=== PATIENT | female | born 1965 | race Caucasian/White ===

== ENCOUNTER 2025-02-23 14:00 | Outpatient (AMB) | payer BC, SELFPAY ==
--- OUTSIDE RECORDS SUMMARY | 2025-02-23 17:10 | XMS_ITS | Clinical Summary ---
Author Organization [facility] [employer] Address [address] [place] [address] Care Team Providers Care Chemist Proteins Name Role Phone No, Pcp CHIEF COMPLIANCE OFFICER Primary Care Provider Unavailabl e Allergies Active Allergy Reactions Criticality Noted Date Comments Cefprozil Rash Low 09/06/2013 Medications anastrozole (ARIMIDEX) 1 mg tablet TAKE 1 TABLET BY MOUTH EVERY DAY 02/07/2023 Active anastrozole (ARIMIDEX) 1 mg tablet TAKE 1 TABLET BY MOUTH EVERY DAY Active CALCIUM CITRATE-VITAMIN D3 ORAL 1200mg Active Social History Tobacco Use Types Packs/Day Years Used Date Smoking Tobacco: Never Smokeless Tobacco: Never Tobacco Cessation:Counseling Given: Not Answered Comments Unknown Sex and Gender Information Value Date Recorded Sex Assigned at Not on file Legal Sex Female 4:40 AM EST Gender Identity Not on file Sexual Orientation Not on file Last Filed Vital Signs Vital Sign Reading Time Taken Comments Blood Pressure 118/72 02/20/2023 8:49 AM EDT Pulse 74 02/20/2023 8:49 AM EDT Temperature 36.6 C (97.8 F) 02/20/2023 8:49 AM EDT Respiratory Rate 16 02/20/2023 8:49 AM EDT Oxygen Saturation 100% 02/20/2023 8:49 AM EDT Inhaled Oxygen Concentration - - Weight - - Height - - Body Mass Index - - Plan of Treatment Health Maintenance Due Date Last Done Comments Colorectal Cancer: COLONOSCO PY Screening every 10 yrs (or Modifier) 1963 Depression: Screening Annual ly using PHQ-2/9 in Adults 18 yrs or above (or HM Modifier)([facility]) 10/17/1981 Hepatitis C Virus Infection in Adolescents and Adults: Screening (or Modifier) ([facility]) 10/17/1981 SDOH Screening Reminder: Zaynab salinas for all adults ([facility]) 10/17/1981 Tobacco Smoking Cessation: i n Adults excluding Women: Behavioral and Pharmacotherapy Interventions ([facility]) 10/17/1981 Cervical Cancer Screenin 1-65 yrs of age (or Modifier) 10/17/1984 Cervical Cancer Screening: P ap every 3 yrs pts age 21-65 10/17/1984 Cervical Cancer: Pap Screeni ng with Modifier timing ([facility]) 10/17/1984 Cervical Cancer: hrHPV alone or with cotesting Pap for Pts 30-65yrs screening every 5yrs ([facility]) 10/17/1984 Colorectal Cancer Screening 45 -75 Yrs (or HM Modifier) 10/17/2008 Colorectal Cancer: FLEXIBLE SIGMOIDOSCOPY Screening every 5 yrs 10/17/2008 Colorectal Cancer: Fecal Imm unochemical Test (FIT) Annually [facility] 10/17/2008 Colorectal Cancer: High-sens itivity gFOBT Screening Annually [facility] 10/17/2008 Colorectal Cancer: Stool Col oguard Screening every 3 yrs 10/17/2008 Colorectal Cancer:CT Colonog valeria Screening every 5 yrs 10/17/2008 Pneumococcal Vaccination Scr eening: Patients 50+ yrs of age ([facility]) (1 of 1 - PCV) 10/17/2013 Zoster/Shingles Vaccine Seri es Screening: Adults aged 18+ yrs (or HM Modifiers)([facility]) (2 of 2) 05/01/2021 03/06/2021 Breast Cancer: Screening Zaynab brad age 50-74 yrs (or HM Modifier)([facility]) 08/13/2022 08/13/2021 Flu Vaccination: Yearly for ages 18mos through 64 years (or Modifier)([facility]) 01/14/2025 04/12/2021, 8 DTaP/Tdap/Td Vaccines ([facility]) (2 - Td or Tdap) 04/24/2027 04/24/2017 RSV Vaccines (1 - 1-dose 75+ series) 10/17/2038 Medical Devices Not on file Insurance [employer] [place] MEDICARE [facility] Care Teams Chemist Proteins Relationship Specialty Start Date End Date No, Pcp, CHIEF COMPLIANCE OFFICER N/A Do not use PCP - General Family Medicine 05/06/20
== END 2025-02-23 14:05 | disposition home or self-care (01) ==
LOC: HO.HMGAL 14:00
PROVIDERS: PCP Internal Medicine; Visit Provider Registered Nurse Emergency
DX: J30.89 Other allergic rhinitis (principal)
CPT/HCPCS: 95117; 95165

== ENCOUNTER 2025-04-06 15:50 | Outpatient (AMB) | payer BC, SELFPAY ==
--- OUTSIDE RECORDS SUMMARY | 2025-04-06 21:55 | XMS_ITS | Clinical Summary ---
Author Organization [facility] [employer] Address [address] [place] [address] Care Team Providers Care Family Law Mediator Name Role Phone No, Pcp SEAT COVERS TRIMMER Primary Care Provider Unavailabl e Allergies Active [...] Adults 18 yrs or above (or HM Modifier)([facility]) 10/17/1981 Hepatitis C Virus Infection in Adolescents and Adults: Screening (or Modifier) ([facility]) 10/17/1981 SDOH Screening Reminder: Zaynab brad for all adults ([facility]) 10/17/1981 Tobacco Smoking Cessation: i n Adults excluding Women: Behavioral and Pharmacotherapy Interventions ([facility]) 10/17/1981 Cervical Cancer Screenin 1-65 yrs of age (or Modifier) 10/17/1984 Cervical Cancer Screening: P ap every 3 yrs pts age 21-65 10/17/1984 Cervical Cancer: Pap Screeni ng with Modifier timing ([facility]) 10/17/1984 Cervical Cancer: hrHPV alone or with cotesting Pap for Pts 30-65yrs screening every 5yrs ([facility]) 10/17/1984 Colorectal Cancer Screening 45 -75 Yrs (or HM Modifier) 10/17/2008 Colorectal Cancer: FLEXIBLE SIGMOIDOSCOPY Screening every 5 yrs 10/17/2008 Colorectal Cancer: Fecal Immunochemical Test (FIT) Annually [facility] 10/17/2008 Colorectal Cancer: High-sens itivity gFOBT Screening Annually [facility] 10/17/2008 Colorectal Cancer: Stool Col oguard Screening every 3 yrs 10/17/2008 Colorectal Cancer:CT Colonog valeria Screening every 5 yrs 10/17/2008 Pneumococcal Vaccination Scr eening: Patients 50+ yrs of age ([facility]) (1 of 1 - PCV) 10/17/2013 Zoster/Shingles Vaccine Seri es Screening: Adults aged 18+ yrs (or HM Modifiers)([facility]) (2 of 2) 05/01/2021 03/06/2021 Breast Cancer: Screening Zaynab brad age 50-74 yrs (or HM Modifier)([facility]) 08/13/2022 08/13/2021 Flu Vaccination: Yearly for ages 18mos through 64 years (or Modifier)([facility]) 01/14/2025 04/12/2021, 8 COVID-19 Vaccine Screening: Initial Series and Booster Status ([facility]) ( - season) 2025 06/13/2021, 07/19/2020, 06/28/2020 DTaP/Tdap/Td Vaccines ([facility]) (2 - Td or Tdap) 04/24/2027 04/24/2017 RSV Vaccines (1 - 1-dose 75+ series) 10/17/2038 Medical Devices Not on file Insurance [employer] [place] MEDIC[place] [facility] Care Teams Family Law Mediator Relationship Specialty Start Date End Date No, Pcp, SEAT COVERS TRIMMER N/A Do not use PCP - General Family Medicine 05/06/20
--- OUTSIDE RECORDS SUMMARY | 2025-04-06 21:56 | XMS_ITS | Data Portability ---
Author Organization [facility], Main Office Address [address] [facility] [address] [place] [address] Care Team Providers Care Child Support Officer Name Role Phone ENRIQUE HARRISRICK Primary Care Provider [facility] Mobile Phone Salesperson NICHOL SOLO Stencil Printer WILFREDO GEIGER General Surgeon ALLEN BURT Referring Provider [phone] Assessment Encounter Date Assessment Date Assessment LastModified by Organization Details LastModified Time 02/26/2023 02/26/2023 This service was provided using telemedicine. Patient consented to video & audio visit Patient was located in the [facility]. Provider was located in the office. No other persons participated in the telemedicine visit except for the patient unless otherwise indicated here. Total time of visit was 15 minutes. [email or web address] Not available 02/26/2023 13:29:49 03/17/2023 03/17/2023 Smita presents for right arm pain x1 week-a wooden fence fell on her right arm while installing it last Friday 03/09. Pain with certain movements of the wrist- flexion. Application of ice and use of a wrist brace alleviates symptoms. Denies of any breakage in skin or loss of sensation to arm/hand. States pain is about a 3-4/10. Does not notice any changes to her arm/hand strength. Physical exam revealed mild swelling to the right forearm. Not warm to touch. Muscle strength/tone is intact bilaterally to the wrist and hand. No bony deformities or tenderness to palpation of the area. Discussed with pt to continue resting, ice packs, and wearing the wrist brace. Denies of any alarm symptoms [email or web address] Not available 03/17/2023 15:28:07 Plan of Treatment Reminders Order Date Submit Date Provider Last Modified By Organization Details Last Modified Time Details Appointments PE EST 2024 10:30A M Cristiane Harris PA-C Not available Not available Not available Lab HbA1c (hemog lobin A1c), blood 2023 024 [facility], [address], [address], [place], [place], [address], 03/11/2024 10:42:54 vitami n D, 25-hyd jose, total, serum 2023 024 [facility], [address], [address], [place], [place], [address], 03/11/2024 10:42:54 CMP, serum or plasma 2023 024 [facility], [address], [address], [place], [place], [address], 03/11/2024 10:43:09 CBC w/ auto diff 2023 024 [email or web address] (Centralized Electronic Ordering - All Locations), Patient Can Go To The Location Of Their Choice, [id number] 10/08/2024 09:14:02 urinal ysis, dipsti ck 2023 024 [email or web address] In-Office Order, Internal Use Only DO Not Attach Compendium DO Not Attach Compendium, Do Not Delete/merge, [id number] 12/12/2023 12:12:25 urinal ysis comple te, reflex cultur e 2023 024 [facility], [address], [address], [place], [address], 12/14/2023 08:07:07 HbA1c (hemog lobin A1c), blood 2022 023 [facility], [address], [address], [place], [address], 08/07/2023 17:12:20 vitami n D, 25-hyd jose, total, serum 2022 023 [facility], [address] [facility], [address], [place], [address], 08/07/2023 18:12:58 CMP, serum or plasma 2022 023 [facility], [address] [facility], [address], [place], [address], 08/07/2023 17:58:07 lipid panel, serum 2022 023 [facility], [address] [facility], [address], [place], [address], 08/07/2023 17:58:09 [facility] 024 [facility], [facility] [place], [address], 03/23/2024 13:57:29 Procedures None record ed. Surgeries None record ed. Imaging XR, hand, 3 or more view 2023 024 [facility], [address] [place] [address], [address], 07/27/2024 17:00:05 XR, forear m, 2 view - right forear m pain- rule in/out fx 2022 023 [facility], [address] [place], [address], 03/17/2023 16:10:18 Medication Orders sulfam ethoxa zole 800 mg-tri methop rim 160 mg tablet 2023 024 [facility]armacy #[id number], [address] [place], [address], 03/11/2024 10:01:57 predni sone 10 mg tablet 2022 023 [email or web address] [facility]/Pharmacy #[id number], [address] [place], [address], 03/10/2023 10:14:53 Patient TargetsNo targets recorded. Patient Instructions Encounter Date Encounter Id Patient Instructions Last Modified By Organization Details Last Modified Time 02/26/2023 [id number] poison estefani, oak, and sumac: care instructions [email or web address] Not available 02/26/2023 13:35:50 To call or return for worsening or concerns [email or web address] Not available 02/26/2023 13:34:49 03/10/2023 [id number] A healthy lifestyle: care instructions [email or web address] Not available 03/10/2023 10:34:37 well visit, women 50 to 65: care instructions [email or web address] Not available 03/10/2023 10:34:36 orthostatic hypotension: care instructions [email or web address] Not available 03/10/2023 10:34:37 Medications (OTC, herbal therapies, supplements) reviewed and reconciled with patient and or caregiver, including potential side effects, drug interactions, instructions, and the consequences of not taking medication. Reviewed potential barriers to medication adherence, such as side effects from medication or cost of medication. [email or web address] Not available 03/10/2023 10:11:15 03/17/2023 [id number] I have reviewed the note and agree with the assessment and plan of care. [email or web address] Not available 03/23/2023 15:24:02 12/12/2023 [id number] painful urination (dysuria): care instructions [email or web address] Not available 12/12/2023 11:59:03 03/11/2024 [id number] A healthy lifestyle: care instructions [email or web address] Not available 03/11/2024 10:42:50 well visit, women 50 to 65: care instructions [email or web address] Not available 03/11/2024 10:42:50 Medications (OTC, herbal therapies, supplements) reviewed and reconciled with patient and or caregiver, including potential side effects, drug interactions, instructions, and the consequences of not taking medication. Reviewed potential barriers to medication adherence, such as side effects from medication or cost of medication. 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 DIAGN OSTIC USE: The Ameri can Diabe mima Assoc iatio n (ADA) and the World Healt h Organ izati on (WHO) recom mend the use of HbA1c to diagn ose diabe mima using a thres hold of 6.5%. Patie nts who have an HbA1c betwe en 5.7% and 6.4% are consi dered at incre ased risk for devel oping diabe mima in the futur eMaverick BRADSHAWTI ON: False ly low HbA1c resul ts may be obser isabel in patie nts with hemol ytic anemi a, homoz ygous forms of abnor mal hemog lobin (e.g. SS, CC, SC), pregn bryn, recen t blood loss or hemog lobin F great er than 7%. Fruct osami ne may be used as an alter parish test in these cases . REFER ENCE: ADA: Stand ards of Medic al Care in Diabe mima 2019, The Journ al of Clini gila and Appli ed Resea [facility] and Educa tion Volum e 43, Suppl ement 1 Not Available [facility] (Centralized Electronic Ordering - All Locations) Patient Can Go To The Location Of Their Choice, 08/07/2023 17:12:20 08/07/1908/07/2023 COMPR EHENS HARVEY METAB OLIC PANL glucose 85 mg/dL (70-99 ) Not Available [facility] (Centralized Electronic Ordering - All Locations) Patient Can Go To The Location Of Their Choice, 08/07/2023 17:58:07 08/07/19 24 08/07/2023 COMPR EHENS HARVEY METAB OLIC PANL BUN 17 mg/dL (6-20) Not Available [facility] (Centralized Electronic Ordering - All Locations) Patient Can Go To The Location Of Their Choice, 08/07/2023 17:58:07 08/07/19 24 08/07/2023 COMPR EHENS HARVEY METAB OLIC PANL creatinine 1.1 mg/dL (0.5-1 .0) high Not Available [facility] (Centralized Electronic Ordering - All Locations) Patient Can Go To The Location Of Their Choice, 08/07/2023 17:58:07 08/07/19 24 08/07/2023 COMPR EHENS HARVEY METAB OLIC PANL sodium 143 mmol/ L (133-1 45) Not Available [facility] (Centralized Electronic Ordering - All Locations) Patient Can Go To The Location Of Their Choice, 08/07/2023 17:58:07 08/07/19 24 08/07/2023 COMPR EHENS HARVEY METAB OLIC PANL potassium 4.1 mmol/ L (3.6-5 .2) Not Available [facility] (Centralized Electronic Ordering - All Locations) Patient Can Go To The Location Of Their Choice, 08/07/2023 17:58:07 08/07/19 24 08/07/2023 COMPR EHENS HARVEY METAB OLIC PANL chloride 105 mmol/ L (98-10 7) Not Available [facility] (Centralized Electronic Ordering - All Locations) Patient Can Go To The Location Of Their Choice, 08/07/2023 17:58:07 08/07/19 24 08/07/2023 COMPR EHENS HARVEY METAB OLIC PANL bicarbonate 27 mmol/ L (22-29 ) Not Available [facility] (Centralized Electronic Ordering - All Locations) Patient Can Go To The Location Of Their Choice, 08/07/2023 17:58:07 08/07/19 24 08/07/2023 COMPR EHENS HARVEY METAB OLIC PANL anion gap 11 (4-17) Not Available [facility] (Centralized Electronic Ordering - All Locations) Patient Can Go To The Location Of Their Choice, 08/07/2023 17:58:07 08/07/19 24 08/07/2023 COMPR EHENS HARVEY METAB OLIC PANL albumin 4.5 gm/dL (3.4-4 .8) Not Available [facility] (Centralized Electronic Ordering - All Locations) Patient Can Go To The Location Of Their Choice, 08/07/2023 17:58:07 08/07/19 24 08/07/2023 COMPR EHENS HARVEY METAB OLIC PANL calcium 9.9 mg/dL (8.6-1 0.5) Not Available [facility] (Centralized Electronic Ordering - All Locations) Patient Can Go To The Location Of Their Choice, 08/07/2023 17:58:07 08/07/19 24 08/07/2023 COMPR EHENS HARVEY METAB OLIC PANL bilirubin,to shayne 0.5 mg/dL (0-1.2 ) Not Available [facility] (Centralized Electronic Ordering - All Locations) Patient Can Go To The Location Of Their Choice, 08/07/2023 17:58:07 08/07/19 24 08/07/2023 COMPR EHENS HARVEY METAB OLIC PANL total protein 6.7 gm/dL (6.2-8 .2) Not Available [facility] (Centralized Electronic Ordering - All Locations) Patient Can Go To The Location Of Their Choice, 08/07/2023 17:58:07 08/07/19 24 08/07/2023 COMPR EHENS HARVEY METAB OLIC PANL Ag ratio 2.0 Not Available [facility] (Centralized Electronic Ordering - All Locations) Patient Can Go To The Location Of Their Choice, 08/07/2023 17:58:07 08/07/1908/07/2023 COMPR EHENS HARVEY METAB OLIC PANL AST 17 U/L (0-32) Not Available [facility] (Centralized Electronic Ordering - All Locations) Patient Can Go To The Location Of Their Choice, 08/07/2023 17:58:07 08/07/19 24 08/07/2023 COMPR EHENS HARVEY METAB OLIC PANL alk phos 60 U/L (35-10 4) Not Available [facility] (Centralized Electronic Ordering - All Locations) Patient Can Go To The Location Of Their Choice, 08/07/2023 17:58:07 08/07/19 24 08/07/2023 COMPR EHENS HARVEY METAB OLIC PANL ALT 15 U/L (0-33) Not Available [facility] (Centralized Electronic Ordering - All Locations) Patient Can Go To The Location Of Their Choice, 08/07/2023 17:58:07 08/07/1908/07/2023 COMPR EHENS HARVEY METAB OLIC PANL estimated GFR creatinine 61 mL/mi n/1.7 3_M2 Creat inine based estim ated glome rular filtr ation (eGFR ) in adult s is calcu lated using the Natio nal Kidne y Found ation recom katherine d 2020 CKD-E PI equat ion. Estim ates GFR from serum creat inine , age and sex. Not Available [facility] (Centralized Electronic Ordering - All Locations) Patient Can Go To The Location Of Their Choice, 08/07/2023 17:58:07 08/07/1908/07/2023 LIPID PANEL cholesterol, total 239 mg/dL (<200) high Not Available [facility] ([facility] Ordering - All Locations) Patient Can Go To The Location Of Their Choice, 08/07/2023 17:58:09 08/07/1908/07/2023 LIPID PANEL triglyceride 51 mg/dL (<150) Not Available [facility] ([facility] Order[facility] - All Locations) Patient Can Go To The Location Of Their Choice, 08/07/2023 17:58:09 08/07/1908/07/2023 LIPID PANEL HDL chol 111 mg/dL (>39) Not Available [facility] (Centralized Electronic Ordering - All Locations) Patient Can Go To The Location Of Their Choice, 08/07/2023 17:58:09 08/07/1908/07/2023 LIPID PANEL LDL cholesterol, calculated 118 mg/dL (0-130 ) Not Available [facility] ([facility]ized Electronic Ordering - All Locations) Patient Can Go To The Location Of Their Choice, 08/07/2023 17:58:09 08/07/1908/07/2023 LIPID PANEL non HDL cholesterol (calc) 128 mg/dL (<160) Not Available [facility] ([facility] Ordering - All Locations) Patient Can Go To The Location Of Their Choice, 08/07/2023 17:58:09 08/07/1908/07/2023 25OH VITAM IN D 25OH vitamin D 52.2 NG/mL (20-50 ) high Not Available [facility] ([facility]ized Electronic Ordering - All Locations) Patient Can Go To The Location Of Their Choice, [address] 08/07/2023 18:12:58 12/12/19 24 12/13/2023 UA/M W/RFL X CULTU RE, ROUTI NE specific gravity 1.006 1.005- 1.030 Not Available [facility] ([facility]) [address] [place], [address], 12/14/2023 08:07:07 12/12/19 24 12/13/2023 UA/M W/RFL X CULTU RE ROUTI NE pH 5.5 5.0-7. 5 Not Available [facility] ([facility]) [address] [facility], [place], [address], 12/14/2023 08:07:07 12/12/19 24 12/13/2023 UA/M W/RFL X CULTU RE, ROUTI NE urine-color YELLOW yellow Not Available [facility] ([facility]) [address] [place], [address], 12/14/2023 08:07:07 12/12/19 24 12/13/2023 UA/M W/RFL X CULTU RE ROUTI NE appearance CLEAR clear Not Available [facility] ([facility]) [address] [place], [address], 12/14/2023 08:07:07 12/12/19 24 12/13/2023 UA/M W/RFL X CULTU REWESTON NE WBC esterase 1+ negati ve abnormal Not Available [facility] ([facility]) [address] [place], [address], 12/14/2023 08:07:07 12/12/19 24 12/13/2023 UA/M W/RFL X CULTU RE ROUTKrystin NE protein NEGATI VE negati ve/tra ce Not Available [facility] ([facility]) [address] [facility], [place], [address], 12/14/2023 08:07:07 12/12/19 24 12/13/2023 UA/M W/RFL X CULTU RE, ROUTI NE glucose NEGATI VE negati ve Not Available [facility] ([facility]) [address] [facility], [place], [address], 12/14/2023 08:07:07 12/12/19 24 12/13/2023 UA/M W/RFL X CULTU RE, ROUTI NE ketones NEGATI VE negati ve Not Available [facility] ([facility]) [address] [facility], [place], [address], 12/14/2023 08:07:07 12/12/19 24 12/13/2023 UA/M W/RFL X CULTU RE, ROUTI NE occult blood NEGATI VE negati ve Not Available [facility] ([facility]) [address] [facility], [place], [address], 12/14/2023 08:07:07 12/12/19 24 12/13/2023 UA/M W/RFL X CULTU RE, ROUTI NE bilirubin NEGATI VE negati ve Not Available [facility] ([facility]) [address] [place], [address], 12/14/2023 08:07:07 12/12/19 24 12/13/2023 UA/M W/RFL X CULTU RE, ROUTI NE urobilinogen ,semi-qn 0.2 mg/dL 0.2-1. 0 Not Available [facility] ([facility]) [address] [place], [address], 12/14/2023 08:07:07 12/12/19 24 12/13/2023 UA/M W/RFL X CULTU RE, ROUTI NE nitrite, urine NEGATI VE negati ve Not Available [facility] ([facility]) [address] [facility], [place], [address], 12/14/2023 08:07:07 12/12/19 24 12/13/2023 UA/M W/RFL X CULTU RE, ROUTI NE microscopic examination SEE BELOW: Micro scopkrystin stout was indic ated and was perfo rmed. Not Available [facility] ([facility]) [address] [facility], [place], [address], 12/14/2023 08:07:07 12/12/19 24 12/13/2023 UA/M W/RFL X CULTU RE, ROUTI NE WBC 6-10 /hpf 0 - 5 abnormal Not Available [facility] ([facility]) [address] [facility], [place], [address], 12/14/2023 08:07:07 12/12/19 24 12/13/2023 UA/M W/RFL X CULTU RE, ROUTI NE RBC NONE SEEN /hpf 0 - 2 Not Available [facility] ([facility]) [address] [facility], [place], [address], 12/14/2023 08:07:07 12/12/19 24 12/13/2023 UA/M W/RFL X CULTU RE, ROUTI NE epithelial cells (non renal) NONE SEEN /hpf 0 - 10 Not Available [facility] ([facility]) [address] [facility], [place], [address], 12/14/2023 08:07:07 12/12/19 24 12/13/2023 UA/M W/RFL X CULTU RE, ROUTI NE epithelial cells (renal) SENIOR COBOL DEVELOPER Not Available [facility] ([facility]) [address] [facility], [place], [address], 12/14/2023 08:07:07 12/12/19 24 12/13/2023 UA/M W/RFL X CULTU RE, ROUTI NE casts NONE SEEN /lpf none seen Not Available [facility] ([facility]) [address], [place], [address], 12/14/2023 08:07:07 12/12/19 24 12/13/2023 UA/M W/RFL X CULTU RE, ROUTI NE cast type SENIOR COBOL DEVELOPER Not Available [facility] ([facility]) [address], [place], [address], 12/14/2023 08:07:07 12/12/19 24 12/13/2023 UA/M W/RFL X CULTU RE, ROUTI NE crystals SENIOR COBOL DEVELOPER Not Available [facility] ([facility]) [address], [place], [address], 12/14/2023 08:07:07 12/12/19 24 12/13/2023 UA/M W/RFL X CULTU RE, ROUTI NE crystal type SENIOR COBOL DEVELOPER Not Available [facility] ([facility]) [address] [facility], [place], [address], 12/14/2023 08:07:07 12/12/19 24 12/13/2023 UA/M W/RFL X CULTU RE, ROUTI NE mucus threads SENIOR COBOL DEVELOPER Not Available [facility] ([facility]) [address] [facility], [place], [address], 12/14/2023 08:07:07 12/12/19 24 12/13/2023 UA/M W/RFL X CULTU RE, ROUTI NE bacteria NONE SEEN none seen/f ew Not Available [facility] ([facility]) [address] [facility], [place], [address], 12/14/2023 08:07:07 12/12/19 24 12/13/2023 UA/M W/RFL X CULTU RE, ROUTI NE yeast SENIOR COBOL DEVELOPER Not Available [facility] ([facility]) [address], [place], [address], 12/14/2023 08:07:07 12/12/19 24 12/13/2023 UA/M W/RFL X CULTU RE, ROUTI NE trichomonas SENIOR COBOL DEVELOPER Not Available [facility] ([facility]) [address] [facility], [place], [address], 12/14/2023 08:07:07 12/12/19 24 12/13/2023 UA/M W/RFL X CULTU RE, ROUTI NE comment SENIOR COBOL DEVELOPER Not Available [facility] ([facility]) [address] [facility], [place], [address], 12/14/2023 08:07:07 12/12/19 24 12/13/2023 UA/M W/RFL X CULTU RE, ROUTI NE microscopic examination SENIOR COBOL DEVELOPER Not Available [facility] ([facility]) [address] [facility], [place], [address], 12/14/2023 08:07:07 12/12/19 24 12/13/2023 UA/M W/RFL X CULTU RE, ROUTI NE urinalysis reflex COMMEN T This speci men has refle xed to a Urine Cultu re. Not Available [facility] ([facility]) [address] [facility], [place], [address], 12/14/2023 08:07:07 12/12/19 24 12/14/2023 UA/M W/RFL X CULTU RE, ROUTI NE urine culture, routine FINAL REPORT Not Available [facility] ([facility]) [address] [facility], [place], [address], 12/14/2023 08:07:07 12/12/19 24 12/14/2023 UA/M W/RFL X CULTU RE, ROUTI NE result 1 NO GROWTH Not Available [facility] ([facility]) [address] [facility], [place], [address], 12/14/2023 08:07:07 12/12/19 24 12/12/2023 urina lysis , dipst ick Leukocytes Modera te Not Available In-Office Order Internal Use Only DO Not Attach Compendium DO Not Attach Compendium, Do Not Delete/merge, [facility] 12/12/2023 11:29:23 12/12/19 24 12/12/2023 urina lysis , dipst ick Nitritie negati ve Not Available In-Office Order Internal Use Only DO Not Attach Compendium DO Not Attach Compendium, Do Not Delete/merge, [facility] 12/12/2023 11:29:23 12/12/19 24 12/12/2023 urina lysis , dipst ick Urobilinogen .2 Not Available In-Of fice Order Internal Use Only DO Not Attach Compendium DO Not Attach Compendium, Do Not Delete/merge, [facility] 12/12/2023 11:29:23 12/12/19 24 12/12/2023 urina lysis , dipst ick Protein Negati ve Not Available In-Office Order Internal Use Only DO Not Attach Compendium DO Not Attach Compendium, Do Not Delete/merge, [facility] 12/12/2023 11:29:23 12/12/19 24 12/12/2023 urina lysis , dipst ick pH 6.0 Not Available In-Office Order Internal Use Only DO Not Attach Compendium DO Not Attach Compendium, Do Not Delete/merge, [facility] 12/12/2023 11:29:23 12/12/19 24 12/12/2023 urina lysis , dipst ick Blood Negati ve Not Available In-Office Order Internal Use Only DO Not Attach Compendium DO Not Attach Compendium, Do Not Delete/merge, [facility] 12/12/2023 11:29:23 12/12/19 24 12/12/2023 urina lysis , dipst ick Specific Cyp[place] 1.005 Not Available In-Off ice Order Internal Use Only DO Not Attach Compendium DO Not Attach Compendium, Do Not Delete/merge, [facility] 12/12/2023 11:29:23 12/12/19 24 12/12/2023 urina lysis , dipst ick Ketone Negati ve Not Available In-Office Order Internal Use Only DO Not Attach Compendium DO Not Attach Compendium, Do Not Delete/merge, [facility] 12/12/2023 11:29:23 12/12/19 24 12/12/2023 urina lysis , dipst ick Bilirubin Negati ve Not Available In-Office Order Internal Use Only DO Not Attach Compendium DO Not Attach Compendium, Do Not Delete/merge, [id number] 12/12/2023 11:29:23 12/12/19 24 12/12/2023 urina lysis , dipst ick Glucose Negati ve Not Available In-Office Order Internal Use Only DO Not Attach Compendium DO Not Attach Compendium, Do Not Delete/merge, [id number] 12/12/2023 11:29:23 12/12/19 24 12/12/2023 urina lysis , dipst ick Appearance Clear Not Available In-Offi ce Order Internal Use Only DO Not Attach Compendium DO Not Attach Compendium, Do Not Delete/merge, [id number] 12/12/2023 11:29:23 12/12/19 24 12/12/2023 urina lysis , dipst ick Color Pale Yellow Not Available In-Office Order Internal Use Only DO Not Attach Compendium DO Not Attach Compendium, Do Not Delete/merge, [id number] 12/12/2023 11:29:23 03/17/20 23 03/17/2023 XR, forea rm, 2 view Forear m 2 Views Right Reason : pain COMPAR SPENSER: None. FINDIN GS: No fractu res or bone lesion s. The visual ized joint spaces are normal . Mild soft tissue swelli ng along the distal radius . IMPRES KELLY: No fractu re. Soft tissue swelli ng along the distal radius . WSN: [id number] Orderi ng Physic rashel: Dana Jamil Dictat ed By: Cherise Mauro i, MD Dictat ed Date/T charles: 4:07 pm Review ed By: Cherise Mauro i, MD Signed By: Cherise Mauro i, MD Signed Date/T charles: 4:07 pm Transc ribed By: ZA Transc ribed Date/T charles: 4:06 pm Patien t Class: Outpat ient [facility] (Outpt Imaging) [address] [place] [address], [address], 03/18/2023 09:34:58 03/17/20 23 03/17/2023 XR, forea rm, 2 view No observ ation record ed. [email or web address] [facility] [address] [place], [address], 01/14/2024 15:51:13 03/17/20 24 08/18/2023 MAMMO , scree kirsten, bilat eral No observ ation record ed. [email or web address] [facility] [address] [place], [address], 03/18/2024 08:45:47 07/27/19 25 07/26/2024 XR, hand, 3 or more view Hand Min 3 Views Left, 3 views Reason : M79.64 2 pain in left hand COMPAR SPENSER: None. FINDIN GS: No fractu res or bone lesion s. No arthri tic change s. Incide ntal 1 mm calcif icatio n in soft tissue s alongs sabiha the base of the middle phalan x of the fifth finger , medial aspect , of no pathol ogic signif icance . IMPRES KELLY: Unrema rkable examin ation. WSN: [id number] Orderi ng Physic rashel: Darci Harris Dictat ed By: Shannan Hunt MD Dictat ed Date/T charles: 12:06 p Review ed By: Shannan Hunt MD Signed By: Shannan Hunt MD Signed Date/T charles: 12:06 pm Transc ribed By: ZA Transc ribed Date/T charles: 11:57 am Patiyin t Class: Outpat ient [facility] ([facility]) [address] [place], [address], 07/31/2024 09:19:51 08/03/19 25 08/03/2024 XR, hip, unila teral No observ ation record ed. [email or web address] [facility] [address] [facility] [place], [address], 08/05/2024 11:31:04 08/03/1907/29/2024 XR, knee No observ ation record ed. [facility] [address] [place] [address], [address], 08/05/2024 11:30:36 Result Notes Documentation Provider Name and Address Organization Details Recorded Time Xr, Forearm, 2 View : Forearm 2 Views Right Reason: pain COMPARISON: None. FINDINGS: No fractures or bone lesions. The visualized joint spaces are normal. Mild soft tissue swelling along the distal radius. IMPRESSION: No fracture. Soft tissue swelling along the distal radius. WSN: [id number] Ordering Physician: Dana Jamil Dictated By: Sveta Narayanan MD Dictated Date/Time: 03/17/23 4:07 pm Reviewed By: Sveta Narayanan MD Signed By: Sveta Narayanan MD Signed Date/Time: 03/17/23 4:07 pm Transcribed By: ZA Transcribed Date/Time: 03/17/23 4:06 pm Patient Class: Outpatient ALLEN MARRUFO [address], [address], [facility] 03/17/2023 16:12:02 Xr, Hand, 3 Or More View : Hand Min 3 Views Left, 3 views Reason: M79.642 pain in left hand COMPARISON: None. FINDINGS: No fractures or bone lesions. No arthritic changes. Incidental 1 mm calcification in soft tissues alongside the base of the middle phalanx of the fifth finger, medial aspect, of no pathologic significance. IMPRESSION: Unremarkable examination. WSN: [id number] Ordering Physician: Cristiane Harris Dictated By: Michelet Sinha MD Dictated Date/Time: 07/27/24 12:06 p Reviewed By: Michelet Sinha MD Signed By: Michelet Sinah MD Signed Date/Time: 07/27/24 12:06 pm Transcribed By: ZA Transcribed Date/Time: 07/27/24 11:57 am Patient Class: Outpatient Cristiane Harris PA-C [address], [address], [facility] [place] 07/27/2024 17:07:47 Problems Name Problem SNOMED Code Status Onset Date Resolution Date Notes Provider Name and Address Organization Details Recorded Time Libby emoral stress syndrome 359780505 Active Bernardino Dewey MD [address] [facility] [address], [place], [address] , [facility] [place] 4 12:05:34 Dysuria 45288202 Completed 04/16/2016 Arturo armstrong MA null, [facility] [place] 4 11:29:37 Screenin g for malignan t neoplasm of breast Completed 201112/28/2013 RECORDED 01/07/20 12 3:37PM BY NOEMY CASTELAN MA, ANNOTATI ON/ADDEN DUM Not Available [facility] 4 15:02:01 Knee pain Completed 201112/28/2013 RECORDED 01/07/20 12 3:37PM BY NOEMY CASTELAN MA, ANNOTATI ON/ADDEN DUM Not Available [facility] 4 15:02:02 Fibromyo sitis 30498274 Completed 201112/28/2013 RECORDED 01/07/20 12 3:37PM BY NOEMY CASTELAN MA, ANNOTATI ON/ADDEN DUM Not Available [facility] 4 15:02:02 Administ ration of tetanus vaccine Completed 201112/28/2013 RECORDED 01/07/20 12 3:37PM BY NOEMY CASTELAN MA, ANNOTATI ON/ADDEN DUM Not Available [facility] 4 15:02:02 Enthesop athy of hip region 25676875 Completed 201112/28/2013 RECORDED 01/07/20 12 3:37PM BY NOEMY CASTELAN MA, ANNOTATI ON/ADDEN DUM Not Available [facility] 4 15:02:02 Screenin g for malignan t neoplasm of breast Completed 201101/20/2014 RECORDED 01/07/20 12 3:37PM BY NOEMY CASTELAN MA, ANNOTATI ON/ADDEN DUM Not Available [facility] 4 13:09:25 Knee pain Completed 201101/20/2014 RECORDED 01/07/20 12 3:37PM BY NOEMY CASTELAN MA, ANNOTATI ON/ADDEN DUM Not Available [facility] 4 13:09:26 Fibromyo sitis 09874635 Completed 201101/20/2014 RECORDED 01/07/20 12 3:37PM BY NOEMY CASTELAN MA, ALISONATI ON/ADDEN DUM Not Available [facility] 4 13:09:26 Administ ration of tetanus vaccine Completed 201101/20/2014 RECORDED 01/07/20 12 3:37PM BY NOEMY CASTELAN MA, UBALDO ON/ADDEN DUM Not Available [facility] 4 13:09:26 Enthesop athy of hip region 02886971 Completed 201101/20/2014 RECORDED 01/07/20 12 3:37PM BY NOEMY CASTELAN MA, UBALDO ON/ADDEN DUM Not Available [facility] 4 13:09:26 Screenin g for malignan t neoplasm of breast Completed 201101/21/2014 RECORDED 01/07/20 12 3:37PM BY NOEMY CASTELAN MA, UBALDO ON/ADDEN DUM Not Available [facility] 4 03:53:36 Knee pain Completed 201101/21/2014 RECORDED 01/07/20 12 3:37PM BY NOEMY CASTELAN MA, ANNOTADRIÁN ON/ADDEN DUM Not Available [facility] 4 03:53:36 Fibromyo sitis 30670086 Completed 201101/21/2014 RECORDED 01/07/20 12 3:37PM BY NOEMY CASTELAN MA, UBALDO ON/ADDEN DUM Not Available [facility] 4 03:53:36 Administ ration of tetanus vaccine Completed 201101/21/2014 RECORDED 01/07/20 12 3:37PM BY NOEMY CASTELAN MA, ANNOTATI ON/ADDEN DUM Not Available [facility] 4 03:53:37 Enthesop athy of hip region 91053831 Completed 201101/21/2014 RECORDED 01/07/20 12 3:37PM BY NOEMY CASTELAN MA, ANNOTATI ON/ADDEN DUM Not Available [facility] 4 03:53:37 Cerebral infarcti on 342416835 Completed 201209/17/2021 Cryptoge [place] stroke. Had closure of PFO. 2013 - no problems since Cristiane Harris PA-C [address] [facility] [address], [place], [address] , [facility] 2 09:21:13 Influenz a vaccine needed [id number] 06 Completed 201212/28/2013 RECORDED 03/09/20 13 2:49PM BY STEVEN DALEY MA, OFFICE VISIT Not Available [facility] 4 15:02:01 Influenz a vaccine needed 12703859642 06 Completed 201201/20/2014 RECORDED 03/09/20 13 2:49PM BY STEVEN DALEY MA, OFFICE VISIT Not Available [facility] 4 13:09:25 Influenz a vaccine needed [id number] 06 Completed 201201/21/2014 RECORDED 03/09/20 13 2:49PM BY STEVEN DALEY MA, OFFICE VISIT Not Available [facility] 4 03:53:36 Mammogra phy abnormal 398412078 Completed 201312/28/2013 RECORDED 07/06/19 14 12:35PM BY MANDY MUNIZ MA, ANNOTATI ON/ADDEN DUM Not Available [facility] 4 15:02:00 Migraine 87808173 Completed 201312/28/2013 RECORDED 07/06/19 14 12:35PM BY MANDY MUNIZ MA, ANNOTATI ON/ADDEN DUM ALFRED Jansen, [facility] 6 09:09:51 Malaise and fatigue 405521465 Completed 201312/28/2013 RECORDED 07/06/19 14 12:35PM BY MANDY MUNIZ MA, ANNOTATI ON/ADDEN DUM Not Available [facility] 4 15:02:01 History of clinical finding in subject 145948253 Completed 201304/16/2016 RECORDED 07/06/19 14 12:35PM BY MANDY MUNIZ MA, UBALDO ON/ADDEN DUM ALFRED Jansen, [facility] 6 09:09:54 Tobacco user [id number] Completed 201312/28/2013 RECORDED 07/06/19 14 12:35PM BY MANDY MUNIZ MA, UBALDO ON/ADDEN DUM ALFRED Jansen, [facility] 6 09:02:02 Follow-u p encounte r Completed 201312/28/2013 RECORDED 07/06/19 14 12:35PM BY MANDY MUNIZ MA, UBALDO ON/ADDEN DUM Not Available [facility] 4 15:02:02 Hyperlip idemia 27017136 Completed 201312/28/2013 RECORDED 07/06/19 14 12:35PM BY MANDY MUNIZ MA, ANNOTATI ON/ADDEN DUM Not Available [facility] 4 15:02:02 Mammogra phy abnormal 414097651 Completed 201301/20/2014 RECORDED 07/06/19 14 12:35PM BY MANDY MUNIZ MA, ANNOTATI ON/ADDEN DUM Not Available [facility] 4 13:09:25 Migraine 27665005 Completed 201301/20/2014 RECORDED 07/06/19 14 12:35PM BY MANDY MUNIZ MA, UBALDO ON/ADDEN DUM ALFRED Jansen, [facility] 6 09:09:51 Malaise and fatigue 793542591 Completed 201301/20/2014 RECORDED 07/06/19 14 12:35PM BY MANDY MUNIZ MA, ANNOTATI ON/ADDEN DUM Not Available [facility] 4 13:09:25 Follow-u p encounte r Completed 201301/20/2014 RECORDED 07/06/19 14 12:35PM BY MANDY MUNIZ MA, ANNOTATI ON/ADDEN DUM Not Available [facility] 4 13:09:26 Hyperlip idemia 50321151 Completed 201301/20/2014 RECORDED 07/06/19 14 12:35PM BY MANDY MUNIZ MA, ANNOTATI ON/ADDEN DUM Not Available [facility] 4 13:09:26 Mammogra phy abnormal 552206609 Completed 201301/21/2014 RECORDED 07/06/19 14 12:35PM BY MANDY MUNIZ MA, ANNOTATI ON/ADDEN DUM Not Available [facility] 4 03:53:36 Migraine 76252460 Completed 201301/21/2014 RECORDED 07/06/19 14 12:35PM BY MANDY MUNIZ MA, ANNOTATI ON/ADDEN DUM ALFRED Jansen [facility] 6 09:09:51 Malaise and fatigue 105379172 Completed 201301/21/2014 RECORDED 07/06/19 14 12:35PM BY MANDY MUNIZ MA, ANNOTATI ON/ADDEN DUM Not Available [facility] 4 03:53:36 Follow-u p encounte r Completed 201301/21/2014 RECORDED 07/06/19 14 12:35PM BY MANDY MUNIZ MA, ANNOTATI ON/ADDEN DUM Not Available [facility] 4 03:53:36 Hyperlip idemia 12424199 Completed 201301/21/2014 RECORDED 07/06/19 14 12:35PM BY MANDY MUNIZ MA, ANNOTATI ON/ADDEN DUM Not Available [facility] 4 03:53:36 Adult health examinat ion Completed 201312/28/2013 RECORDED 07/07/19 14 3:45PM BY NOEMY CASTELAN MA, ANNOTATI ON/ADDEN DUM Not Available [facility] 4 15:02:00 Adult health examinat ion Completed 201301/20/2014 RECORDED 07/07/19 14 3:45PM BY NOEMY CASTELAN MA, ANNOTATI ON/ADDEN DUM Not Available [facility] 4 13:09:25 Adult health examinat ion Completed 201301/21/2014 RECORDED 07/07/19 14 3:45PM BY NOEMY CASTELAN MA, ANNOTATI ON/ADDEN DUM Not Available [facility] 4 03:53:36 Aneurysm of heart 83658722 Completed 201304/25/2021 Cristiane Harris PA-C [address] [facility] [address], [place], [address] , [facility] 1 14:01:03 Screenin g for malignan t neoplasm of cervix Completed 201312/28/2013 RECORDED 09/07/19 14 8:28AM BY GAYLA MENDEZ I, ANNOTATI ON/ADDEN DUM Not Available [facility] 4 15:02:01 Low back pain 189810187 Active 2013 ALFRED Jansen, [facility] 6 09:09:48 Tobacco user [id number] Completed 201304/16/2016 Removal Reason: quit ALFRED Jansen [facility] 6 09:02:02 Hemorrho ids 42894747 Active 2013 ALFRED Jansen [facility] 6 09:09:35 Herpetic gingivos tomatiti s 58972818 Active 2013 ALFRED Jansen, [facility] 6 09:10:11 Laborato ry procedur e performe d 240790491 Completed 201312/28/2013 RECORDED 09/07/19 14 8:28AM BY GAYLA MENDEZ I ANNOTATI ON/ADDEN DUM Not Available [facility] 4 15:02:02 Migraine 90159155 Active 2013 ALFRED Jansen, [facility] 6 09:09:51 Ostium secundum type atrial septal defect 158808824 Active 2013 STORY: SEEN ON JAYLEEN AFTER CRYPTOGE MADISON STROKE ALFRED Jansen, [facility] 6 09:09:20 Varicose veins of lower extremit y 82323262 Active 2013 ALFRED Jansen, [facility] 6 09:09:40 Screenin g for malignan t neoplasm of cervix Completed 201301/20/2014 RECORDED 09/07/19 14 8:28AM BY ALISON ALMEIDAATI ON/ADDEN DUM Not Available [facility] 4 13:09:25 Laborato ry procedur e performe d 224483477 Completed 201301/20/2014 RECORDED 09/07/19 14 8:28AM BY GAYLA MENDEZ I ANNOTATI ON/ADDEN DUM Not Available [facility] 4 13:09:26 Screenin g for malignan t neoplasm of cervix Completed 201301/21/2014 RECORDED 09/07/19 14 8:28AM BY GAYLA MENDEZ I ANNOTATI ON/ADDEN DUM Not Available [facility] 4 03:53:36 Laborato ry procedur e performe d 834479537 Completed 201301/21/2014 RECORDED 09/07/19 14 8:28AM BY GAYLA SCHULTZK I, ANNOTATI ON/ADDEN DUM Not Available [facility] 4 03:53:36 Ex-smoke r 2346162 Active 2015 Noemy ramos MA [facility] 6 09:02:06 Libby emoral osteoart hritis 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 Active 2018 Bernardino Dewey MD [address] [address], [place], [address] , [facility] 9 09:40:30 Cervical radiculo erna 60691683 Active 2019 Bernardino Dewey MD [address] [address], [place], [address] , [facility] 0 09:44:17 History of polyp of colon 556605028 Active 2020 Cristiane Harris PA-C [address] [address], [place], [address] , [facility] 1 09:23:42 Chronic back pain 378765815 Active 2020 Cristiane Harris PA-C [address] [address], [place], [address] , [facility] 1 11:09:40 Thoracol umbar radiculo erna 73802130868 108 Active 2020 Cristiane Harris PA-C [address] [address], [place], [address] , [facility] 1 11:09:20 Benign paroxysm al position al vertigo 061688178 Active 2021 Cristiane Harris PA-C [address] [address], [place], [address] , [facility] 2 13:39:47 History of cerebrov ascular accident 164692387 Active 2021 Cristiane Harris PA-C [address] [address], [place], [address] , [facility] 2 09:20:50 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 401943043 Active 2021 Cristiane Harris PA-C [address] [facility] [address], [place], [address] , [facility] 2 09:26:32 Skin lesion 14157728 Active 2021 Cristiane Harris PA-C [address], [place], [address] , [facility] 2 10:44:10 Contact dermatit is caused by urushiol from [facility] estefani 882188519 Active 2022 CANELO Walls [address] [facility] [address], [place], [address] , [facility] 3 13:29:30 Spinal stenosis in cervical region 23957736 Active 2022 Cristiane Harris PA-C [address] [facility] [address], [place], [address] , [facility] 3 10:11:15 Insomnia 683342584 Active 2022 Cristiane Harris PA-C [address] [facility] [address], [place], [address] , [facility] 3 10:18:56 Dysuria 59429683 Active 2023 Arturo armstrong MA null, [facility] 4 11:29:37 Osteoart hritis of joint of bilatera l hands 99783939711 9109 Active 2023 Cristiane Harris PA-C [address] [facility] [address], [place], [address] , [facility] 4 10:53:40 Problem Notes None recorded. Procedures Surgical History Date Name Laterality Status Provider Name and Address Organization Details Recorded Time 08/18/19 24 Most Recent Mammogram completed Tamela Retana MA [facility] 03/11/2024 10:04:44 02/13/20 23 fluoroscopy guided injection of left facet joint of lumbar spine completed Madina Rondon [facility] 03/11/2023 11:13:48 10/17/19 23 Date of Last Pap Smear completed Madina Alcon [facility] 10/31/2022 13:30:58 08/13/19 22 Mammogram Screening completed Milagros Greggows [facility] 08/16/2021 11:27:36 04/20/20 21 Date of Last Colonoscopy completed Carina Downey [facility] 05/29/2021 14:22:22 04/20/20 21 Colonoscopy completed Carina Downey [facility] 05/29/2021 14:22:15 12/16/19 20 punch biopsy of skin lesion completed Noemy ivey MA [facility] 12/31/2019 08:51:35 Dilation and Curettage completed Noemy ivey MA [facility] 03/14/2014 15:40:57 Caesarean Section completed Noemy ivey MA [facility] 03/14/2014 15:40:57 lumpectomy of left breast completed Elsie Levi MA [facility] 01/30/2022 10:23:38 Imaging Results None recorded. Procedure Notes None recorded. Medical Equipment None Reported. Allergies Allergen ID Allergen Name Allergen Category Reaction Reaction Severity Criticality Documentation Date Start Date Code Code System Note Provider Name and Address Organization Details Recorded Time 3573 Cefzil medicatio n rash Not available Not available 12/28/20132013 71741 1 RxNorm ALFRED Mahan [facility] 4 15:40:10 Medications Name Sig Start Date Stop Date Status Note LastModified by Organization Details LastModified Time multivita min tablet Take 1 tablet every day by oral route. active Not Available Not Available No t Available cyclobenz aprine 10 mg tablet TAKE 1 TABLET BY MOUTH THREE TIMES A DAY NEEDED FOR 10 DAYS 08/14 completed Not Available Not Available Not Available lysine 500 mg capsule DAILY 09/03 completed RECORDED 09/04/19 13 1:27PM BY MANDY MUNIZ MA, OFFICE VISIT; Not Available Not Available Not Available anastrozo le 1 mg tablet TAKE 1 TABLET BY MOUTH EVERY DAY active Not Available Not Available No t Available prednison e 10 mg tablet PLEASE SEE ATTACHED FOR DETAILED DIRECTIO NS 03/10 completed Not Available Not Available Not Available doxycycli ne hyclate 100 mg capsule 07/13 completed Not Available Not Available Not Available tizanidin e 2 mg tablet TAKE 1 TABLET BY MOUTH EVERY 8 HOURS active Not Available Not Available No t Available acetazola mide 125 mg tablet DAILY active RECORDED 09/07/19 14 11:10AM BY CARY RIZZO MA, OFFICE VISIT;[facility] Not Available Not Available Not Available valacyclo vir 1 gram tablet TAKE 2 TABLETS BY MOUTH AT THE FIRST SIGN OF SYMPTOMS , THEN TAKE 2 TABLETS BY MOUTH 12 HOURS LATER. active Not Available Not Available No t Available tretinoin 0.025 % topical cream APPLY TO THE AFFECTED AREA(S) BY TOPICAL ROUTE ONCE DAILY AT BEDTIME active Not Available Not Available No t Available meloxicam 15 mg tablet Take 1 tablet every day by oral route for 30 days. active Not Available Not Available No t Available ondansetr on HCl 4 mg tablet TAKE 1-2 TABLETS BY MOUTH EVERY 8 HOURS NEEDED FOR NAUSEA 08/14 completed Not Available Not Available Not Available clindamyc in HCl 150 mg capsule TAKE 1 CAPSULE EVERY 6 HOURS UNTIL FINISHED 12/11 completed Not Available Not Available Not Available meclizine 12.5 mg tablet Take 1 tablet 3 times a day by oral route as needed for 10 days. 09/17 completed Not Available Not Available Not Available metronida zole 500 mg tablet 04/16 completed Not Available Not Available Not Available ciproflox acin 250 mg tablet Take 1 tablet every 12 hours by oral route for 5 days. active Not Available Not Available No t Available tretinoin 0.05 % topical cream APPLY SPARINGL Y TO FACE AT BEDTIME active Not Available Not Available No t Available sulfameth oxazole 800 mg-trimet hoprim 160 mg tablet TAKE 1 TABLET BY MOUTH EVERY 12 HOURS FOR 5 DAYS 03/11 completed Not Available Not Available Not Available peg-elect rolyte solution 420 gram oral solution TAKE 8 OZ BY MOUTH DIRECTED 04/24 completed Not Available Not Available Not Available lidocaine -prilocai ne 2.5 %-2.5 % topical cream PLEASE SEE ATTACHED FOR DETAILED DIRECTIO NS 09/17 completed Not Available Not Available Not Available clindamyc in 1 % topical gel APPLY TO ACNE PRONE AREAS ONCE DAILY USE WITH BENZOYL PEROXIDE CLEANSER . active Not Available Not Available No t Available Tylenol PM 25 mg-500 mg tablet Take 1 tablet every day by oral route. 07/26 completed Not Available Not Available Not Available amitripty line 10 mg tablet Take 1 tablet every day by oral route for 30 days. 04/24 completed Not Available Not Available Not Available polymyxin B sulfate 10,000 unit-trim ethoprim 1 mg/mL eye drops INSTILL 1 DROP INTO AFFECTED EYE(S) BY OPHTHALM IC ROUTE EVERY 6 HOURS.fo r 7 days 12/30 completed Not Available Not Available Not Available ascorbic acid (vitamin C) ER 500 mg capsule,e xtended release Take 1 capsule every day by oral route. 04/16 completed Not Available Not Available Not Available clindamyc in 2 % vaginal cream INSERT 1 APPLICAT ORFUL VAGINALL Y AT BEDTIME FOR 7 DAYS 01/22 completed Not Available Not Available Not Available aspirin 81 mg tablet Take 1 tablet every day by oral route as directed for 30 days. 01/22 completed Not Available Not Available Not Available gabapenti n 100 mg capsule Take 1 capsule 3 times a day by oral route for 30 days. 07/26 completed Not Available Not Available Not Available ibuprofen 600 mg tablet Take 1 tablet as needed by oral route for 7 days. active Not Available Not Available No t Available ketoconaz ole 2 % topical cream APPLY TO RASH ON THIGHS TWICE DAILY UNTIL CLEAR THEN 1-2 TIMES WEEKLY FOR PREVENTI ON 01/30 completed Not Available Not Available Not Available aspirin-a cetaminop hen-caffe ine 250 mg-250 mg-65 mg tablet NEEDED FOR HEADACHE 04/16 completed Not Available Not Available Not Available mometason e 0.1 % topical cream APPLY TO AFFECTED AREA EVERY DAY BY TOPICAL ROUTE NEEDED FOR 10 DAYS. 03/10 completed Not Available Not Available Not Available Tylenol Extra Strength 500 mg tablet Take 2 tablets every 4 hours by oral route as needed. active Not Available Not Available No t Available clindamyc in phosphate 1 % topical solution Apply 1 applicat ion every day by topical route as directed for 30 days. 12/30 completed Not Available Not Available Not Available oxycodone 5 mg tablet TAKE 1 TABLET BY MOUTH EVERY 4 HOURS NEEDED FOR MODERATE PAIN active Not Available Not Available No t Available calcium 1,250 mg chewable tablet DAILY 04/16 completed RECORDED 09/07/19 14 11:02AM BY CARY RIZZO MA, OFFICE VISIT; Not Available Not Available Not Available nitrofura ntoin monohydra te/macroc rystals 100 mg capsule TAKE 1 CAPSULE BY MOUTH TWICE A DAY FOR 7 DAYS 01/10 completed Not Available Not Available Not Available melatonin 10mg as needed 02/26 completed Not Available Not Available Not Available Tylenol PM Extra Strength 1/2 tablet as needed at bedtime 03/11 completed Not Available Not Available Not Available Viactiv DAILY 01/06 completed RECORDED 01/07/20 12 3:40PM BY NOEMY CASTELAN MA, OFFICE VISIT; Not Available Not Available Not Available Glucosami ne Complex DAILY 09/03 completed RECORDED 09/04/19 13 1:27PM BY MANDY MUNIZ MA, OFFICE VISIT; Not Available Not Available Not Available Multivita mins DAILY 04/16 completed Not Available Not Available Not Available Fiber Powder 3 gram/3.5 gram oral Take 1 tsp every day by oral route. active Not Available Not Available No t Available Citracal Regular 1200mg active take 2 capsules daily Not Available Not Available Not Available melatonin 10 mg tablet Take 1 tablet as needed by oral route at bedtime. active Not Available Not Available No t Available Airborne (ascorbat e sodium) 03/11 completed PRN Not Available Not Available Not Available Yuvafem 10 mcg vaginal tablet 07/13 completed Not Available Not Available Not Available Vitals Date Recorded Body height Body mass index (BMI) Body weight Heart rate Oxygen saturation Oxygen saturation in Arterial blood by Pulse oximetry Body temperature Systolic And Diastolic Provider Name and Address Organization Details Last Updated DateTime 4 167.64 cm 22.4 kg/m2 06306.3 4 g 63 /min 98 % 98 % 97.9 [degF] 103/67 mm[Hg] Arturo last MA [facility] 4 11:34:07 Date Recorded Body height Body mass index (BMI) Body weight Heart rate Oxygen saturation Oxygen saturation in Arterial blood by Pulse oximetry Body temperature Systolic And Diastolic Provider Name and Address Organization Details Last Updated DateTime 3 167.64 cm 22.3 kg/m2 01373.4 5 g 60 /min 99 % 99 % 97.8 [degF] 124/79 mm[Hg] Selina Lewis LPN [facility] 3 09:31:40 Date Recorded Body height Body mass index (BMI) Body weight Oxygen saturation Oxygen saturation in Arterial blood by Pulse oximetry Heart rate Body temperature Systolic And Diastolic Provider Name and Address Organization Details Last Updated DateTime 4 167.64 cm 22 kg/m2 39604.9 6 g 100 % 100 % 66 /min 97.9 [degF] 111/77 mm[Hg] Tamela Retana MA [facility] 4 10:01:01 Date Recorded Body height Body mass index (BMI) Body weight Heart rate Oxygen saturation Oxygen saturation in Arterial blood by Pulse oximetry Body temperature Systolic And Diastolic Provider Name and Address Organization Details Last Updated DateTime 3 167.64 cm 22.8 kg/m2 75117.5 2 g 74 /min 98 % 98 % 97.7 [degF] 104/71 mm[Hg] Selina Lewis LPN [facility] 3 14:39:49 Social History Question Answer Notes LastModified by Organizat ion Details LastModified Time Tobacco Smoking Status Former Smoker quit in 1989 at age [address] [facility] [facility] 03/14/2014 15:40:09 Do You Have An Advance Directive? Yes Georgia Domínguez (sister) [email or web address] Information not available 01/30/2022 Is Blood Transfusion Acceptable In An Emergency? Yes Information not available 04/11/2015 What Is Your Level Of Caffeine Consumption? Moderate Coffee And Tea, 3-4 X Day Information not available 03/14/2014 How Much Tobacco Do You Chew? None Information not available 04/11/2015 In The 14 Days Before Symptom Onset, Have You Had Close Contact With A Laboratory-confi rmed COVID-19 While That Case Was Ill? No [email or web address] Information not available 01/30/2022 In The 14 Days Before Symptom Onset, Have You Had Close Contact With A Person Who Is Under Investigation For COVID-19 While That Person Was Ill? No [email or web address] Information not available 01/30/2022 Have You Been To An Area Known To Be High Risk For COVID-19? No [email or web address] Information not available 01/30/2022 What Type Of Diet Are You Following? CARBOHYDRATE Low Carb Information not available 03/14/2014 Which Illicit Or Recreational Drugs Have You Used? None Information not available 03/14/2014 Live Alone Or With Others? Alone [email or web address] Information not available 01/30/2022 Do You Take Precautions To Prevent Distracted Driving? Yes Information not available 04/11/2015 How Often Do You Need To Have Someone Help You When You Read Instructions, Pamphlets, Or Other Written Material From Your Doctor Or Pharmacy? Sometimes [email or web address] Information not available 01/22/2021 Have You Served In The ? No Information not available 04/16/2016 Have You Or Anyone In Your Household Had Any Of The Following Symptoms In The Last 14 Days: Sore Throat, Cough, Chills, Body Aches For Unknown Reasons, Shortness Of Breath For Unknown Reasons, Loss Of Smell, Loss Of Taste, Fever At Or Greater Than 100 Degrees Fahrenheit? No Information not available 12/31/2019 Are You Or Anyone In Your Household A Health Care Provider Or Emergency Responder? No Information not available 12/31/2019 To The Best Of Your Knowledge Have You Been In Close Proximity To Any Individual Who Tested Positive For COVID-19? No Information not available 12/31/2019 Have You Recently Traveled To A COVID-19 High Risk Area Or Gathering In The Last 10 Days? No [email or web address] Information not available 01/22/2021 What Was The Date Of Your Most Recent Tobacco Screening? 03/11/2024 Information not available 03/11/2024 How Many Children Do You Have? 2 Scott And Partha Information not available 07/13/2018 Do You Use Protection During Sex? No Information not available 04/11/2015 Seat Belts Used Routinely Yes [email or web address] Information not available 01/30/2022 Are You Sexually Active? Yes Information not available 04/11/2015 Smoke Alarm In Home Yes [email or web address] Information not available 01/30/2022 At What Age Did You Start Smoking Tobacco? 14 Information not available 03/14/2014 Are You Passively Exposed To Smoke? No Information not available 04/11/2015 How Much Tobacco Do You Smoke? 0.5 PPD Information not available 03/14/2014 Do You Use Sunscreen Routinely? Yes Information not available 04/11/2015 How Many Years Have You Smoked Tobacco? 10 Information not available 04/11/2015 Sex: Unknown Functional Status Question Answer Note LastModified by Organizat ion Details LastModified Time Do you use any illicit or recreational drugs? No [email or web address] Information not available 01/30/2022 Do you or have you ever used any other forms of tobacco or nicotine? No [email or web address] Information not available 03/11/2024 What is your level of alcohol consumption? Occasional [email or web address] Information not available 03/11/2024 Do you or have you ever used smokeless tobacco? Never used smokeless tobacco Information not available 12/31/2019 Are you currently employed? Yes full-time Information not available 03/14/2014 Are you able to walk independently without assistance or assistive devices? YESWOREST [email or web address] Information not available 01/30/2022 Are you able to care for yourself independently? 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 Never used electronic cigarettes [email or web address] Information not available 01/30/2022 What is your exercise level? Moderate 5-6 x week; walking and running 3 miles, stretching Information not available 03/14/2014 Mental Status None recorded. Family History Relationship Description Onset Age of this Age Resolved Age Notes LastModified by Organization Details LastModified Time Mother Asthma [email or web address] s Not available 03/14/2014 15:40:10 Mother Carcinoma of breast 80 [email or web address] Not available 01/30 09:45:22 Mother Essential hypertension [email or web address] Not available 09:45:22 Father Alcoholism [email or web address] Not avail able 01/30/2022 09:45:22 Sister Carcinoma of breast 50 Not available 01/30 09:45:22 Brother Alcoholism [email or web address] Not avai lable 01/30/2022 09:45:22 Paternal Grandmother Arthritis [email or web address] s Not available 03/14/2014 15:40:10 Medical History Condition Response Varicose Veins Y Vision or Eye Problems Y Arthritis Y Head Injury/Concussion Y Breast Cancer Y Headaches/Migraines Y Headaches Y Stroke Y Allergies Y Chicken Pox Y Acne Y Gynecological History Statement/Question Response Date of Last Pap Smear 10/16/2022 Date of Last Colonoscopy 04/20/2021 Most Recent Mammogram 08/18/2023 Obstetrics History GPAL:G 0 P 0 0 0 0 Immunizations Vaccine Type Date Status Note Provider Nam e and Address Organization Details Recorded Time Influenza, split virus, trivalent, preservative 6 completed ALFRED Savage [facility] 07/26/2021 13:07:23 Influenza, split virus, trivalent, preservative 7 completed ALFRED Woo [facility] 04/24/2017 09:53:34 Influenza, split virus, trivalent, preservative 9 completed [facility] 12/31/2019 08:49:10 COVID-19, mRNA, LNP-S, PF, 30 mcg/0.3 mL dose 1 completed Elsie Levi ALFRED adriel, [facility] 07/26/2021 13:07:23 COVID-19, mRNA, LNP-S, PF, 30 mcg/0.3 mL dose 1 completed Elsie Levi ALFRED adriel [facility] 07/26/2021 13:07:23 zoster recombinant 1 [facility] 13:07:23 Influenza, split virus, trivalent, preservative 0 completed Elsie Levi ALFRED adriel, [facility] 07/26/2021 13:07:23 Influenza, MDCK, quadrivalent, PF 8 completed [facility] 13:07:23 COVID-19, mRNA, LNP-S, PF, 30 mcg/0.3 mL dose 1 completed Elsie Levi ALFRED adriel [facility] 07/26/2021 13:07:23 Influenza, split virus, quadrivalent, PF 1 completed [facility] 07/26/2021 13:07:23 Influenza, split virus, trivalent, preservative 5 completed Elsie Levi ALFRED adriel [facility] 07/26/2021 13:07:23 Influenza, split virus, quadrivalent, PF 3 completed ALFRED Bob, [facility] 12/12/2023 11:34:23 Tdap 7 completed Not Available [facility] 07/03/2019 02:21:47 Influenza, split virus, trivalent, PF 4 completed Not Available [facility] 07/03/2019 02:21:57 Td (adult), 2 Lf tetanus toxoid, preservative free, adsorbed 0 completed Not Available [facility] 12/28/2013 13:42:27 Influenza, split virus, trivalent, preservative 1 completed [facility] 12/28/2013 13:42:27 influenza, seasonal, intradermal, preservative free 3 completed Not Available [facility] 12/28/2013 13:42:27 Influenza, split virus, trivalent, PF 4 completed Cristiane Harris PA-C [address], [address], [facility] 03/11/2024 10:33:52 Past Encounters Encounter ID Performer Location Encounter Start Date Encounter Closed Date Diagnosis/Indication Diagnosis SNOMED-CT Code Diagnosis ICD10 Code Diagnosis IMO Codes Diagnosis Note [id number] [facility]Comm erce [address] [facility] [place] [address] 12/27/2010 00:00:00 [id number] autoEComm erce [address] [facility] [place] [address] 08/19/2011 00:00:00 [id number] autoEComm erce [address] [facility] [place] [address] 01/07/2012 00:00:00 [id number] autoEComm erce [address] [facility] [place] [address] 08/25/2012 00:00:00 [id number] autoEComm erce [address] [facility] [place] [address] 09/03/2012 00:00:00 [id number] autoEComm erce [address] [facility] [place] [address] 03/09/2013 00:00:00 [id number] autoEComm erce [address] [facility] [place] [address] 09/06/2013 00:00:00 [id number] Bernardino Dewey MD Main Office [address] [address] 03/14/2014 15:17:22 03/14/2014 16:42:14 Adult health examination 261968267 Needs infl uenza immunization 538014540 Patellofem oral stress syndrome 648452290 Migraine 10333750 Screening for malignant neoplasm of colon 493172749 [id number] Bernardino Dewey MD Main Office [address] [address] 04/11/2015 15:48:56 04/11/2015 16:47:45 Adult health examination 032008056 Z00.00 Low back pain 234864255 M54.5 History of cerebrovascular accident 945875386 Z86.73 [id number] Bernardino Dewey MD Main Office [address] [address] 04/16/2016 08:46:24 04/16/2016 09:59:55 Adult health examination 014866337 Z00.00 History of cerebrovascular accident 575017917 Z86.73 Bursitis of shoulder 239 184838 M75.50 Low back pain 254114693 M54.5 Ostium sec undum type atrial septal defect 176919499 Q21.1 Patellofem oral stress syndrome 780972595 M22.2X9 [id number] Bernardino Dewey MD Main Office [address] [address] 03/25/2017 09:45:34 03/25/2017 12:44:48 [id number] Bernardino Dewey MD Main Office [address] [address] 04/24/2017 09:31:58 04/24/2017 11:13:49 Adult health examination 330342423 Z00.00 Administra tion of viral vaccine 46228296 Z23 Migraine 89819746 G43.90 9 Patellofem oral stress syndrome 032238542 M22.2X9 History of cerebrovascular accident 206999359 Z86.73 Cryptogeni c stroke. Had closure of PFO. Ostium sec undum type atrial septal defect 944154539 Q21.1 S/P closure [id number] Bernardino Dewey MD Main Office [address] [address] [place] [address] 07/13/2018 08:30:22 07/13/2018 09:44:50 Screening for malignant neoplasm of cervix 453154258 Z12.4 Hepatitis C screening [address] [facility] th examination 576017886 Z00.00 Umbilical hernia 7960724 07 K42.9 Nausea 955062734 R11.0 Hyperlipidemia 39249719 E78.5 Fatigue 62080241 R53.83 Patellofem oral osteoarthritis 938435797 M17.12 [id number] Bernardino Dewey MD Main Office [address] [address] [place] [address] 12/31/2019 08:31:37 12/31/2019 09:51:55 Adult health examination 222992750 Z00.00 Umbilical hernia 3059157 07 K42.9 Costal chondritis 433933 04 M94.0 Cervical radiculopathy 24959734 M54.12 right side C7 [id number] Bernardino Dewey MD Main Office [address] [place] [address] 01/31/2020 14:30:59 01/31/2020 16:05:20 Idiopathic peripheral neuropathy 30073210 G60.9 [id number] Cristiane Harris PA-C Main Office [address] [place] [address] 01/22/2021 08:25:49 01/22/2021 09:47:24 Adult health examination 634416456 Z00.00 due for mammo, pap utd Cervical radiculopathy 28182079 M54.12 cont f/u c neuro, cont HEP Migraine 61263558 G43.90 9 stable lately, f/u c neuro prn Herpetic gingivostomatitis 95019022 B00.2 stable History of polyp of colon 910311706 Z86.010 overdue 2020 - encouraged pt to call Screening for malignant neoplasm of breast 833347872 Z12.39 Screening for cardiovascular system disease 281955879 Z13.6 Varicose v eins of lower extremity 24857355 I83.893 Right uppe r quadrant pain 182168155 R10.11 mikd, int, chronic - neg pancreatic / liver enzymes 2019, will recheck lfts, and check u/s, cont activate you probiotic in case is IBS [id number] Agustín Farrell MD [facility] [address] [address] [place] [address] 04/03/2021 08:19:26 04/03/2021 11:27:35 Right upper quadrant pain 645311359 R10.11 mild, int, chronic - neg pancreatic / liver enzymes 2019, recently had nl lft's and ruq abd u/s, cont activia just in case is IBS, denies bloating c/o int discomfort (not pain as per pt) under R ribcage over the past few yrs, pain can last > 1 wk, aggrav by sitting seen by gi - no need for egd see below to r/o radiculiti s Chronic back pain 795779 002 M54.9 more so lbp - managed by hep/yoga/p ilates last lumbar xrays 2016 - DDD & scoliosis - will recheck check thoracic xrays to r/o radiculiti s History of polyp of colon 040813381 Z86.010 pending colon next month [id number] Agustín Farrell MD [facility] [address] [address] [place] [address] 04/24/2021 08:11:05 04/24/2021 13:10:29 Thoracolumbar radiculopathy 7796276230 9108 M47.25 pt has chronic sciatica and ruq pain - trial of low dose gbn - see below [id number] Agustín Farrell MD Main Office [address] [address] [place] [address] 07/26/2021 12:47:35 07/26/2021 13:44:34 Benign paroxysmal positional vertigo 806177129 H81.10 rec drink more water, less tea and will give trial of prn meclizine while awaiting vestibular therapy eval [id number] Agustín Farrell MD Main Office [address] [address] [place] [address] 09/17/2021 08:28:30 09/17/2021 09:33:26 Pre-surgery evaluation 494194428 Z01.818 Benign par oxysmal positional vertigo 181624337 H81.10 resolved History of cerebrovascular accident 962937689 Z86.73 Cryptogeni c stroke. Had closure of PFO. 2013 - no problems since Chronic back pain 984988 002 M54.9 stable - managed by hep/yoga/p ilates last lumbar xrays 2016 - DDD & scoliosis Varicose v eins of lower extremity 91867796 I83.893 s/p procedure c vein specialist - BLE - sig better Infiltrati ng duct carcinoma of breast 410057430 C50.919 Screening for cardiovascular system disease 174425825 Z13.6 [id number] Agustín Farrell MD Main Office [address] [place] [address] 01/30/2022 09:45:04 01/30/2022 11:12:08 Adult health examination 717604124 Z00.00 pap utd Infiltrati ng duct carcinoma of breast 309521166 C50.919 cont f/u c breast surgeon in 05.07, cont f/u c rad onc (finished radiation) , pending see medical onc next month History of cerebrovascular accident 494045726 Z86.73 Cryptogeni c stroke. Had closure of PFO. 2013 - no problems since Chronic back pain 989615 002 M54.9 stable - managed by hep/yoga/p ilates last lumbar xrays 2016 - DDD & scoliosis Varicose v eins of lower extremity 90646421 I83.893 s/p procedure c vein specialist - BLE - sig better Cramp in lower limb 4499 46375 R25.2 Vitamin D deficiency 347 29842 E55.9 Varicella vaccination 68 058672 Z23 Skin lesion 45017816 L98 .9 cont f/u c derm Hyperlipidemia 85520336 E78.5 Herpetic gingivostomatitis 13697088 B00.2 stable, requests refill Thoracolum bar radiculopathy 0843631057 9108 M47.25 pt has chronic sciatica and ruq pain - no tolerate low dose gbn - mild, tolerable - consider retry this vs other if worse in future [id number] ROCAEL MERAZ MD Main Office [address] [place] [address] 07/09/2022 13:26:09 07/09/2022 13:57:05 Neck pain 65791992 M54.2 - reduced range of motion in the neck due to the pain- no tenderness on palpation- believe pain is coming from muscle tension- pt started on flexeril> pt advised to start with 1/2 table and slowly increase> pt advised not to drive with medication - ordered x-ray of the cervical spine for further evaluation - RTC if no improvemen t [id number] [facility] [address] [facility] [address] [place] [address] 08/14/2022 08:40:32 08/14/2022 10:19:07 Urinary tract infectious disease 02186696 N39.0 symptoms classic for UTI, treat as below, if not resolving pt to make appt in office for eval. no fever or hx of complicate d UTI, no need to check urine Dysuria 06759898 R30.0 improved with Otc med Azo. can use for one more day as needed [id number] Agustín Farrell MD [facility] [address] [facility] [address] [place] [address] 01/10/2023 11:45:21 01/10/2023 13:44:11 Contact dermatitis caused by urushiol from [employer] poison estefani L25.5 Started with right arm 1 week ago and initial lesion has largely dried up but new lesions erupting on arms/legs over past 24-48 hours. Advised to try and isolate/co ntain and clean any articles of clothing or golf equipment that may be harboring residual oils. Given degree of skin involvemen t will treat bothe systemical ly and locally. Common/ser ious potential side effects discussed. Advised to call with any problems. [id number] Mac Olivera MD [facility] [address] [facility] [address] [place] [address] 02/26/2023 13:03:09 02/26/2023 13:48:01 Contact dermatitis caused by urushiol from [employer] poison estefani 294310008 L25.5 Started 3 days ago, Advised to try and isolate/co ntain and clean any articles of clothing or golf equipment that may be harboring residual oils. Given degree of skin involvemen t will treat both systemical ly and locally. Common/ser ious potential side effects discussed. Advised to call with any problems. [id number] Agustín Farrell MD Main Office [address] [facility] [address] [place] [place] [address] 03/10/2023 09:10:11 03/10/2023 10:36:53 Adult health examination 870014946 Z00.00 pap & mammo & colon utd Infiltrati ng duct carcinoma of breast 707465184 C50.919 cont f/u c breast surgeon, cont f/u c rad onc (finished radiation) & medical onc q 6 months History of cerebrovascular accident 986554675 Z86.73 Cryptogeni c stroke. Had closure of PFO. 2013 - no problems since Chronic back pain 329127 002 M54.9 stable - managed by hep/yoga/p ilates last lumbar xrays 2016 - DDD & scoliosis Varicose v eins of lower extremity 81555574 I83.893 s/p procedure c vein specialist - BLE - sig better Vitamin D deficiency 347 05804 E55.9 Skin lesion 62773262 L98 .9 cont f/u c derm Hyperlipidemia 50594441 E78.5 Herpetic gingivostomatitis 82861808 B00.2 stable Thoracolum bar radiculopathy 2478574654 9108 M47.25 pt has chronic sciatica and ruq pain - no tolerate low dose gbn - mild, tolerable - consider retry this vs other if worse in future Spinal bienvenido nosis in cervical region 78310978 M48.02 cont f/u c neurosurge on and pain mgtmt - s/p janis injxn 8.30.23 Insomnia 318429668 G47.0 0 rec stop tyl pm (benadryl has been linked to dementia) - rather use melatonin - if no sig help, call us - to consider traz or gbn (see above) Impaired f asting glycemia 423771313 R73.01 Orthostati c hypotension 81508605 I95.1 ? has this occasional ly since her bp runs low (not on bp med) - rec stay well hydrated [id number] ALLEN MARRUFO Main Office [address] [facility] [address] [place] [address] 03/17/2023 14:21:19 03/17/2023 15:17:25 Pain in right arm 444598007 M79.601 Continue with conservati ve measuremen ts of rest, avoiding activities such as golf, ice packs, and wrist braceDiscu ssed the importance to wear the brace on for support and to avoid activities that involve using the forearm. Will order an xray to rule in/out fx [id number] Agustín Farrell MD Main Office [address] [facility] [address] [place] [place] [address] 12/12/2023 11:26:10 12/12/2023 12:04:19 Dysuria 81384666 R30.0 one day of dysuria and frequency with leuks on urine dipstick, will cover empiricall y for uncomplica leonarda cystitis and modify treatment depending on urine culture result. Needs further eval inb/worse with treatment. [id number] Agustín Farrell MD Main Office [address] [facility] [address] [place] [address] 03/11/2024 09:50:20 03/11/2024 10:58:24 Adult health examination 993566882 Z00.00 pap & mammo & colon utd Needs infl uenza immunization 031813604 Z23 19 YEARS AND OLDER ONLY Infiltrati ng duct carcinoma of breast 389741950 C50.919 cont f/u c breast surgeon, cont f/u c rad onc (finished radiation) & medical onc q 6 months History of cerebrovascular accident 962187840 Z86.73 Cryptogeni c stroke. Had closure of PFO. 2013 - no problems since Chronic back pain 188126 002 M54.9 stable - managed by hep/yoga/p ilates last lumbar xrays 2016 - DDD & scoliosis Varicose v eins of lower extremity 12019458 I83.893 s/p procedure c vein specialist - BLE - sig better Vitamin D deficiency 347 07425 E55.9 Skin lesion 46651450 L98 .9 stable, cont f/u c derm Hyperlipidemia 33838458 E78.5 normal lipids 2.24 - very high hdl Herpetic gingivostomatitis 83676811 B00.2 stable Thoracolum bar radiculopathy 9727414907 9108 M47.25 pt has chronic sciatica and ruq pain - no tolerate low dose gbn - mild, tolerable - consider retry this vs other if worse in future 9.24 - stable Spinal bienvenido nosis in cervical region 41658867 M48.02 cont f/u c neurosurge on and pain mgtmt - s/p janis injxn 8 9.24 - see below Insomnia 981515657 G47.0 0 rec stop tyl pm (benadryl has been linked to dementia) - rather use melatonin - if no sig help, call us - to consider traz or gbn (see above) Impaired f asting glycemia 174778501 R73.01 Cervical radiculopathy 98109047 M54.12 cont f/u c neuro, cont HEP 9.24 - pending updated mri/sx c Dr. 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 6279927002 95475 M19.041 seen by ATC remotely - will get updated eval and hand xrays Health Concerns Section Related Observation LastModified by Organization Detai ls LastModified Time None Recorded Concern Status LastModified by Organization Details LastModified Time None Recorded Advance Directives Directive Y: Georgiaheather Domínguez (sister) Payers Insurance Date Sequence Insurance Name Policy Number Policy Morales Covered Member ID Morales Member ID Guarantor Name 03/29/2025 1 [facility] CARLOS EDUARDO [id number] Raymon Kimball [id number] Smita Liangois Notes Date Note Type Note Provider Name and Address Organization Details Recorded Time 3 text/html Skin LesionReported by PatientHPIFor location, patient reportsabdomen,arms (right arm), andlegs. For quality, patient reportsitchy. For severity, patient reportssevere. For duration, patient reportsstarted 1 week(s) ago. For onset/timing, patient reportsabruptandfluctuating .Had an episode of poison estefani 1 month ago that was really bad,Friday/ Friday went golfing and rash started 3 days ago- on Friday.Has small blisters, + itchy , has been applying ivarest.She did take 10 days of prednisone last time.- she took it wrong as she spread it out throughout the days and did not do well. CANELO Walls [address] [address], [place], [address], [facility] 02/26/2023 13:40:42 3 text/html Generic HPI TemplateReported by Patient here for annual pe. Cristiane Jd BOWLES [address] [address], [place], [address], [facility] 03/10/2023 10:43:03 3 text/html ROS as noted in the HPI Smita presents for right arm pain x1 week. Reports a wooden fence fell on her right arm while installing it last Friday 03/09. Reports of pain with certain movements of the wrist- flexion. Soreness when touching the area. Application of ice and use of a wrist brace alleviates symptoms. Pt has been playing golf and notices soreness to her right forearm. Denies of any breackage in skin or loss of sensation to arm/hand. States pain is about a 3-4/10. Ice packs helps alleviate pain. Does not notice any changes to her arm/hand strength. Denies of any alarm symptoms ROCAEL MERAZ MD [address] [address], [place], [address], [facility] 03/23/2023 15:24:12 4 text/html DysuriaReported by PatientHPIFor quality, patient reportsburning. For severity, patient reportsmild. For duration, patient reportsconstant. For timing, patient reportssuddenandactual date: (12/12/23). For context, patient reportsno prior history of stdsandno known exposure to std. For associated symptoms, patient reportsno fever,no blisters on genitals,no rash on genitals,no hesitancy,no blood in the urine, andno flank pain.Does not have frequent UTI's, but awoke this AM with dysuria and frequency. No recent abx/constipation/sexual activity. Arturo Reese MA null, [facility] [place] 12/12/2023 12:26:43 4 text/html Generic HPI TemplateReported by Patient here for annual pe. Cristiane Harris PA-C [id number], [place], [id number], [facility] [place] 03/11/2024 10:54:41 OBGyn Episode No OBEpisode recorded.
== END 2025-04-06 15:51 | disposition home or self-care (01) ==
LOC: HO.HMGAL 15:50
PROVIDERS: PCP Physician Assistant Medical; Visit Provider Registered Nurse Emergency
DX: J30.89 Other allergic rhinitis (principal)
CPT/HCPCS: 95117; 95165

== ENCOUNTER 2025-05-25 15:02 | Outpatient (AMB) | payer BC, SELFPAY ==
--- OUTSIDE RECORDS SUMMARY | 2025-05-25 23:36 | XMS_ITS | Data Portability ---
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 [place], [address] , [facility] 0 09:44:17 History of polyp of colon 410916349 Active 2020 Cristiane Harris PA-C [address] [address], [place], [address] , [facility] 1 09:23:42 Chronic back pain 221448742 Active 2020 Cristiane Harris PA-C [address] [address], [place], [address] , [facility] 1 11:09:40 Thoracol umbar radiculo erna 01013259536 108 Active 2020 Cristiane Harris PA-C [address] [address], [place], [address] , [facility] 1 11:09:20 Benign paroxysm al position al vertigo 553168453 Active 2021 Cristiane Harris PA-C [address] [address], [place], [address] , [facility] 2 13:39:47 History of cerebrov ascular accident 354898008 Active 2021 Cristiane Harris PA-C [address] [address], [place], [address] , [facility] 2 09:20:50 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 341037316 Active 2021 Cristiane Harris PA-C [address] [facility] [address], [place], [address] , [facility] 2 09:26:32 Skin lesion 19136481 Active 2021 Cristiane Harris PA-C [address], [place], [address] , [facility] 2 10:44:10 Contact dermatit is caused by urushiol from [facility] estefani 519455897 Active 2022 CANELO Walls [address] [facility] [address], [place], [address] , [facility] 3 13:29:30 Spinal stenosis in cervical region 79861830 Active 2022 Cristiane Harris PA-C [address] [facility] [address], [place], [address] , [facility] 3 10:11:15 Insomnia 329731474 Active 2022 Cristiane Harris PA-C [address] [facility] [address], [place], [address] , [facility] 3 10:18:56 Dysuria 15932657 Active 2023 Arturo armstrong MA null, [facility] 4 11:29:37 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 Procedures Surgical History Date Name Laterality Status Provider Name and Address Organization Details Recorded Time 08/18/19 24 Most Recent Mammogram completed Tamela Retana MA [facility] 03/11/2024 10:04:44 02/13/20 23 fluoroscopy guided injection of left facet joint of lumbar spine completed Madina Rondon [facility] 03/11/2023 11:13:48 10/17/19 23 Date of Last Pap Smear completed Madina Alcon [facility] 10/31/2022 13:30:58 08/13/19 22 Mammogram Screening completed Milagros Greggows [facility] 08/16/2021 11:27:36 04/20/20 21 Date of Last Colonoscopy completed Carina Downey [facility] 05/29/2021 14:22:22 04/20/20 21 Colonoscopy completed Carina Downey [facility] 05/29/2021 14:22:15 12/16/19 20 punch biopsy of skin lesion completed Noemy ivey MA [facility] 12/31/2019 08:51:35 Dilation and Curettage completed Noemy ivey MA [facility] 03/14/2014 15:40:57 Caesarean Section completed Noemy ivey MA [facility] 03/14/2014 15:40:57 lumpectomy of left breast completed Elsie Levi MA [facility] 01/30/2022 10:23:38 Imaging Results None recorded. Procedure Notes None recorded. Medical Equipment None Reported. Allergies Allergen ID Allergen Name Allergen Category Reaction Reaction Severity Criticality Documentation Date Start Date Code Code System Note Provider Name and Address Organization Details Recorded Time 3573 Cefzil medicatio n rash Not available Not available 12/28/20132013 91665 1 RxNorm ALFRED Mahan [facility] 4 15:40:10 Medications Name Sig Start [...] CARY RIZZO MA, OFFICE VISIT;[facility] AT [facility] Not Available Not Available Not Available valacyclo [...] (BMI) Body weight Heart rate Oxygen saturation Body temperature Systolic And Diastolic Provider Name and Address Organization Details Last Updated DateTime 4 167.64 cm 22.4 kg/m2 19799.3 4 g 63 /min 98 % 97.9 [degF] 103/67 mm[Hg] Arturo last MA [facility] 4 11:34:07 Date Recorded Body height Body mass index (BMI) Body weight Heart rate Oxygen saturation Body temperature Systolic And Diastolic Provider Name and Address Organization Details Last Updated DateTime 3 167.64 cm 22.3 kg/m2 18619.4 5 g 60 /min 99 % 97.8 [degF] 124/79 mm[Hg] Selina Lewis LPN [facility] 3 09:31:40 Date Recorded Body height Body mass index (BMI) Body weight Oxygen saturation Heart rate Body temperature Systolic And Diastolic Provider Name and Address Organization Details Last Updated DateTime 4 167.64 cm 22 kg/m2 20629.9 6 g 100 % 66 /min 97.9 [degF] 111/77 mm[Hg] Tamela Retana MA [facility] 4 10:01:01 Date Recorded Body height Body mass index (BMI) Body weight Heart rate Oxygen saturation Body temperature Systolic And Diastolic Provider Name and Address Organization Details Last Updated DateTime 3 167.64 cm 22.8 kg/m2 18244.5 2 g 74 /min 98 % 97.7 [degF] 104/71 mm[Hg] Selina Lewis LPN [facility] 3 14:39:49 Social History Question Answer Notes LastModified by Organizat ion Details LastModified Time Tobacco Smoking Status Former Smoker quit in 1989 at age 24 [facility] W[facility], [facility] 03/14/2014 15:40:09 Do You Have An Advance Directive? Yes Georgia Mcclellandagojohn (sister) [email or web address] Information not available 01/30/2022 Is Blood Transfusion [...] COVID-19 While That Case Was Ill? No Information not available 01/30/2022 In The 14 Days Before Symptom Onset, Have You Had Close Contact With A Person Who Is Under Investigation For COVID-19 While That Person Was Ill? No Information not available 01/30/2022 Have You Been To An Area Known To Be High Risk For COVID-19? No [email or web address] Information not available 01/30/2022 What Type Of Diet Are You Following? CARBOHYDRATE Low Carb Information not available 03/14/2014 Which Illicit Or Recreational Drugs Have You Used? None Information not available 03/14/2014 Live Alone Or With Others? Alone [email or web address] Information not available 01/30/2022 Do You Take Precautions To Prevent Distracted Driving? Yes Information not available 04/11/2015 How Often Do You Need To Have Someone Help You When You Read Instructions, Pamphlets, Or Other Written Material From Your Doctor Or Pharmacy? Sometimes [email or web address] Information not available 01/22/2021 Have You Served [...] Gathering In The Last 10 Days? No [email or web address] Information not available 01/22/2021 What Was The Date Of Your Most Recent Tobacco Screening? 03/11/2024 [email or web address] Information not available 03/11/2024 How Many Children Do You Have? 2 Scott And Partha Information not available 07/13/2018 Do You Use Protection During Sex? No Information not available 04/11/2015 Seat Belts Used Routinely Yes [email or web address] Information not available 01/30/2022 Are You Sexually Active? Yes Information not available 04/11/2015 Smoke Alarm In Home Yes [email or web address] Information not available 01/30/2022 At What Age [...] use any illicit or recreational drugs? No [email or web address] Information not available 01/30/2022 Do you or have you ever used any other forms of tobacco or nicotine? No [email or web address] Information not available 03/11/2024 What is your level of alcohol consumption? Occasional [email or web address] Information not available 03/11/2024 Do you or have you ever used smokeless tobacco? Never used smokeless tobacco Information not available 12/31/2019 Are you currently employed? Yes full-time Information not available 03/14/2014 Are you able to walk independently without assistance or assistive devices? YESWOREST [email or web address] Information not available 01/30/2022 Are you able to care for yourself independently? 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 Never used electronic cigarettes [email or web address] Information not available 01/30/2022 What is your exercise level? Moderate 5-6 x week; walking and running 3 miles, stretching Information not available 03/14/2014 Mental Status None recorded. Family History Relationship Description Onset Age of this Age Resolved Age Notes LastModified by Organization Details LastModified Time Mother Asthma [email or web address] s Not available 03/14/2014 15:40:10 Mother Carcinoma of breast 80 [email or web address] Not available 01/30 09:45:22 Mother Essential hypertension [email or web address] Not available 09:45:22 Father Alcoholism [email or web address] Not avail able 01/30/2022 09:45:22 Sister Carcinoma of breast 50 [email or web address] Not available 01/30 09:45:22 Brother Alcoholism [email or web address] Not avai lable 01/30/2022 09:45:22 Paternal Grandmother Arthritis [email or web address] s Not available 03/14/2014 15:40:10 Medical History Condition Response Breast Cancer Y Headaches/Migraines Y Varicose Veins Y Vision or Eye Problems Y Arthritis Y Head Injury/Concussion Y Stroke Y Headaches Y Acne Y Allergies Y Chicken Pox Y Gynecological History Statement/Question Response Date of Last Pap Smear 10/16/2022 Date of Last Colonoscopy 04/20/2021 Most Recent Mammogram 08/18/2023 Obstetrics History GPAL:G 0 P 0 0 0 0 Immunizations Vaccine Type Date Status Note Provider Nam e and Address Organization Details Recorded Time Influenza, split virus, trivalent, preservative 6 completed ALFRED Savage [facility] 07/26/2021 13:07:23 Influenza, split virus, trivalent, preservative 7 completed ALFRED Woo [facility] 04/24/2017 09:53:34 Influenza, split virus, trivalent, preservative 9 completed AL[facility]ED Woo [facility] 12/31/2019 08:49:10 COVID-19, mRNA, LNP-S, PF, 30 mcg/0.3 mL dose 1 completed ALFRED Savage [facility] 07/26/2021 13:07:23 COVID-19, mRNA, LNP-S, PF, 30 mcg/0.3 mL dose 1 completed ALFRED Savage, [facility] 07/26/2021 13:07:23 zoster recombinant 1 completed Elsie Thomas Roperanna ALFRED morel, [facility] 07/26/2021 13:07:23 Influenza, split virus, trivalent, preservative 0 completed Elsie Thomaselidia Levi ALFRED morel, [facility] 07/26/2021 13:07:23 Influenza, MDCK, quadrivalent, PF 8 completed Elsie Levi ALFRED morel, [facility] 07/26/2021 13:07:23 COVID-19, mRNA, LNP-S, PF, 30 mcg/0.3 mL dose 1 completed Elsiejose m Amatoby Judsonanna [facility] 13:07:23 Influenza, split virus, quadrivalent, PF 1 completed Elsiejose m Amatoelidia Levi ALFRED morel, [facility] 07/26/2021 13:07:23 Influenza, split virus, trivalent, preservative 5 completed [facility]operanna [facility]/26[facility] 13:07:23 Influenza, split virus, quadrivalent, PF 3 completed [facility]ese [facility] 12/12/2023 11:34:23 Tdap 7 completed Not Available [facility] 07/03/2019 02:21:47 Influenza, split virus, trivalent, PF 4 completed Not Available [facility] 07/03/2019 02:21:57 Td (adult), 2 Lf tetanus toxoid, preservative free, adsorbed 0 completed Not Available [facility] 12/28/2013 13:42:27 Influenza, split virus, trivalent, preservative 1 completed Not Available [facility] 12/28/2013 13:42:27 influenza, seasonal, intradermal, preservative free 3 completed Not Available [facility] 12/28/2013 13:42:27 Influenza, split virus, trivalent, PF 4 completed Cristiane Harris PA-C [address] [address], [place], [address], [facility] 03/11/2024 10:33:52 Past Encounters Encounter ID Performer Location Encounter Start Date Encounter Closed Date Diagnosis/Indication Diagnosis SNOMED-CT Code Diagnosis ICD10 Code Diagnosis IMO Codes Diagnosis Note [id number] [facility]ce [address] [facility] [facility] [place] [address] 12/27/2010 00:00:00 [id number] autoEComm erce [address] [facility] [place] [address] 08/19/2011 00:00:00 [id number] autoEComm erce [address] [facility] [place] [address] 01/07/2012 00:00:00 [id number] autoEComm erce [address] [facility] [facility] [place] [address] 08/25/2012 00:00:00 [id number] autoEComm erce [address] [facility] [place] [address] 09/03/2012 00:00:00 [id number] autoEComm erce [address] [facility] [place] [address] 03/09/2013 00:00:00 [id number] autoEComm erce [address] [facility] [place] [address] 09/06/2013 00:00:00 [id number] Bernardino Dewey MD Main Office [address] [facility] [address] [place] [address] 03/14/2014 15:17:22 03/14/2014 16:42:14 Adult health examination 407767321 Needs infl uenza immunization 259193263 Patellofem oral stress syndrome 994017301 Migraine 46237556 Screening for malignant neoplasm of colon 284934000 [id number] Bernardino Dewey MD Main Office [address] [address] [place] [address] 04/11/2015 15:48:56 04/11/2015 16:47:45 Adult health examination 804868869 Z00.00 Low back pain 695838871 M54.5 History of cerebrovascular accident 294014009 Z86.73 [id number] Bernardino Dewey MD Main Office [address] [address] [place] [address] 04/16/2016 08:46:24 04/16/2016 09:59:55 Adult health examination 155722136 Z00.00 History of cerebrovascular accident 167081806 Z86.73 Bursitis of shoulder 239 165097 M75.50 Low back pain 998582063 M54.5 Ostium sec undum type atrial septal defect 947007135 Q21.1 Patellofem oral stress syndrome 052125624 M22.2X9 [id number] Bernardino Dewey MD Main Office [address] [address] [place] [address] 03/25/2017 09:45:34 03/25/2017 12:44:48 [id number] Bernardino Dewey MD Main Office [address] [address] [place] [address] 04/24/2017 09:31:58 04/24/2017 11:13:49 Adult health examination 141678827 Z00.00 Administra tion of viral vaccine 12652742 Z23 Migraine 41039673 G43.90 9 Patellofem oral stress syndrome 097531239 M22.2X9 History of cerebrovascular accident 094408665 Z86.73 Cryptogeni c stroke. Had closure of PFO. Ostium sec undum type atrial septal defect 729313006 Q21.1 S/P closure [id number] Bernardino Dewey MD Main Office [address] [address] [place] [address] 07/13/2018 08:30:22 07/13/2018 09:44:50 Screening for malignant neoplasm of cervix 609335945 Z12.4 Hepatitis C screening 41 5063568 Z11.59 Adult heal th examination 051034439 Z00.00 Umbilical hernia 7582843 07 K42.9 Nausea 506706122 R11.0 Hyperlipidemia 13587356 E78.5 Fatigue 01962902 R53.83 Patellofem oral osteoarthritis 393800705 M17.12 [id number] Bernardino Dewey MD Main Office [address] [facility] [address] [place] [address] 12/31/2019 08:31:37 12/31/2019 09:51:55 Adult health examination 125472807 Z00.00 Umbilical hernia 0816502 07 K42.9 Costal chondritis 245812 04 M94.0 Cervical radiculopathy 44705353 M54.12 right side C7 [id number] Bernardino Dewey MD Main Office [address] [facility] [address] [place] [address] 01/31/2020 14:30:59 01/31/2020 16:05:20 Idiopathic peripheral neuropathy 63896117 G60.9 [id number] Cristiane Harris PA-C Main Office [address] [facility] [address] [place] [address] 01/22/2021 08:25:49 01/22/2021 09:47:24 Adult health examination 011787513 Z00.00 due for mammo, pap utd Cervical radiculopathy 02105533 M54.12 cont f/u c neuro, cont HEP Migraine 26066800 G43.90 9 stable lately, f/u c neuro prn Herpetic gingivostomatitis 57257963 B00.2 stable History of polyp of colon 384422680 Z86.010 overdue 2020 - encouraged pt to call Screening for malignant neoplasm of breast 820138286 Z12.39 Screening for cardiovascular system disease 116553127 Z13.6 Varicose v eins of lower extremity 35789487 I83.893 Right uppe r quadrant pain 875399851 R10.11 mikd, int, chronic - neg pancreatic / liver enzymes 2019, will recheck lfts, and check u/s, cont activate you probiotic in case is IBS [id number] Agustín Farrell MD [facility] [address] [address] [place] [address] 04/03/2021 08:19:26 04/03/2021 11:27:35 Right upper quadrant pain 636438395 R10.11 mild, int, chronic - neg pancreatic / liver enzymes 2018, recently had nl lft's and ruq abd u/s, cont activia just in case is IBS, denies bloating c/o int discomfort (not pain as per pt) under R ribcage over the past few yrs, pain can last > 1 wk, aggrav by sitting seen by gi - no need for egd see below to r/o radiculiti s Chronic back pain 325885 002 M54.9 more so lbp - managed by hep/yoga/p ilates last lumbar xrays 2015 - DDD & scoliosis - will recheck check thoracic xrays to r/o radiculiti s History of polyp of colon 887199339 Z86.010 pending colon next month [id number] Agustín Farrell MD [facility] [address] [address] [place] [address] 04/24/2021 08:11:05 04/24/2021 13:10:29 Thoracolumbar radiculopathy 3969070123 9108 M47.25 pt has chronic sciatica and ruq pain - trial of low dose gbn - see below [id number] Agustín Farrell MD Main Office [address] [address] [place] [address] 07/26/2021 12:47:35 07/26/2021 13:44:34 Benign paroxysmal positional vertigo 151062574 H81.10 rec drink more water, less tea and will give trial of prn meclizine while awaiting vestibular therapy eval [id number] Agustín Farrell MD Main Office [address] [address] [place] [address] 09/17/2021 08:28:30 09/17/2021 09:33:26 Pre-surgery evaluation 722109853 Z01.818 Benign par oxysmal positional vertigo 493314192 H81.10 resolved History of cerebrovascular accident 568886443 Z86.73 Cryptogeni c stroke. Had closure of PFO. 2013 - no problems since Chronic back pain 605774 002 M54.9 stable - managed by hep/yoga/p ilates last lumbar xrays 2016 - DDD & scoliosis Varicose v eins of lower extremity 70380159 I83.893 s/p procedure c vein specialist - BLE - sig better Infiltrati ng duct carcinoma of breast 571747555 C50.919 Screening for cardiovascular system disease 481190358 Z13.6 [id number] Agustín Farrell MD Main Office [address] [facility] [address] [facility] [place] [address] 01/30/2022 09:45:04 01/30/2022 11:12:08 Adult health examination 383283423 Z00.00 pap utd Infiltrati ng duct carcinoma of breast 300848512 C50.919 cont f/u c breast surgeon in 05.07, cont f/u c rad onc (finished radiation) , pending see medical onc next month History of cerebrovascular accident 021277008 Z86.73 Cryptogeni c stroke. Had closure of PFO. 2013 - no problems since Chronic back pain 562491 002 M54.9 stable - managed by hep/yoga/p ilates last lumbar xrays 2016 - DDD & scoliosis Varicose v eins of lower extremity 49418670 I83.893 s/p procedure c vein specialist - BLE - sig better Cramp in lower limb 4499 12610 R25.2 Vitamin D deficiency 347 57365 E55.9 Varicella vaccination 68 693441 Z23 Skin lesion 60369674 L98 .9 cont f/u c derm Hyperlipidemia 43850143 E78.5 Herpetic gingivostomatitis 02158455 B00.2 stable, requests refill Thoracolum bar radiculopathy 3163689580 9108 M47.25 pt has chronic sciatica and ruq pain - no tolerate low dose gbn - mild, tolerable - consider retry this vs other if worse in future [id number] ROCAEL MERAZ MD Main Office [address] [facility] [address] [place] [address] 07/09/2022 13:26:09 07/09/2022 13:57:05 Neck pain 78642334 M54.2 - reduced range of motion in the neck due to the pain- no tenderness on palpation- believe pain is coming from muscle tension- pt started on flexeril> pt advised to start with 1/2 table and slowly increase> pt advised not to drive with medication - ordered x-ray of the cervical spine for further evaluation - RTC if no improvemen t [id number] [facility] [address] [place] [address] 08/14/2022 08:40:32 08/14/2022 10:19:07 Urinary tract infectious disease 80958297 N39.0 symptoms classic for UTI, treat as below, if not resolving pt to make appt in office for eval. no fever or hx of complicate d UTI, no need to check urine Dysuria 73959067 R30.0 improved with Otc med Azo. can use for one more day as needed [id number] Agustín Farrell MD [facility] [address] [place] [address] 01/10/2023 11:45:21 01/10/2023 13:44:11 Contact dermatitis caused by urushiol from [place] poison estefani 523665275 L25.5 Started with right arm 1 week [...] discussed. Advised to call with any problems. [id number] Mac [facility]a [facility] [address] [address] 02/26/2023 13:03:09 02/26/2023 13:48:01 Contact dermatitis caused by urushiol from [place] poison estefani 756158028 L25.5 Started 3 days ago, Advised to try and isolate/co ntain and clean any articles of clothing or golf equipment that may be harboring residual oils. Given degree of skin involvemen t will treat both systemical ly and locally. Common/ser ious potential side effects discussed. Advised to call with any problems. [id number] Agustín Farrell MD Main Office [address] [address] [facility] [place] [id number] 03/10/2023 09:10:11 03/10/2023 10:36:53 Adult health examination 020197776 Z00.00 pap & mammo & colon utd Infiltrati ng duct carcinoma of breast 763405557 C50.919 cont f/u c breast surgeon, cont f/u c rad onc (finished radiation) & medical onc q 6 months History of cerebrovascular accident 348567644 Z86.73 Cryptogeni c stroke. Had closure of PFO. 2013 - no problems since Chronic back pain 634975 002 M54.9 stable - managed by hep/yoga/p ilates last lumbar xrays 2016 - DDD & scoliosis Varicose v eins of lower extremity 13911303 I83.893 s/p procedure c vein specialist - BLE - sig better Vitamin D deficiency 347 30466 E55.9 Skin lesion 45899470 L98 .9 cont f/u c derm Hyperlipidemia 63651454 E78.5 Herpetic gingivostomatitis 50123293 B00.2 stable Thoracolum bar radiculopathy 5588596302 9108 M47.25 pt has chronic sciatica and ruq pain - no tolerate low dose gbn - mild, tolerable - consider retry this vs other if worse in future Spinal bienvenido nosis in cervical region 65557554 M48.02 cont f/u c neurosurge on and pain mgtmt - s/p janis injxn 8.30.23 Insomnia 988774192 G47.0 0 rec stop tyl pm (benadryl has been linked to dementia) - rather use melatonin - if no sig help, call us - to consider traz or gbn (see above) Impaired f asting glycemia 883721547 R73.01 Orthostati c hypotension 47974222 I95.1 ? has this occasional ly since her bp runs low (not on bp med) - rec stay well hydrated [id number] ALLEN MARRUFO Main Office [address] [facility] [address] [facility] [place] [id number] 03/17/2023 14:21:19 03/17/2023 15:17:25 Pain in right arm 437478904 M79.601 Continue with conservati ve measuremen ts of rest, avoiding activities such as golf, ice packs, and wrist braceDiscu ssed the importance to wear the brace on for support and to avoid activities that involve using the forearm. Will order an xray to rule in/out fx [id number] Agustín Farrell MD Main Office [address] [facility] [address] [place] [address] 12/12/2023 11:26:10 12/12/2023 12:04:19 Dysuria 30062435 R30.0 one day of dysuria and frequency with leuks on urine dipstick, will cover empiricall y for uncomplica leonarda cystitis and modify treatment depending on urine culture result. Needs further eval inb/worse with treatment. [id number] Agustín Farrell MD Main Office [address] [facility] [address] [place] [address] 03/11/2024 09:50:20 03/11/2024 10:58:24 Adult health examination 305285719 Z00.00 pap & mammo & colon utd Needs infl uenza immunization 642002525 Z23 19 YEARS AND OLDER ONLY Infiltrati ng duct carcinoma of breast 285525647 C50.919 cont f/u c breast surgeon, cont f/u c rad onc (finished radiation) & medical onc q 6 months History of cerebrovascular accident 486987598 Z86.73 Cryptogeni c stroke. Had closure of PFO. 2013 - no problems since Chronic back pain 869977 002 M54.9 stable - managed by hep/yoga/p ilates last lumbar xrays 2016 - DDD & scoliosis Varicose v eins of lower extremity 49695443 I83.893 s/p procedure c vein specialist - BLE - sig better Vitamin D deficiency 347 19680 E55.9 Skin lesion 89650773 L98 .9 stable, cont f/u c derm Hyperlipidemia 28750376 E78.5 normal lipids 2.24 - very high hdl Herpetic gingivostomatitis 12007354 B00.2 stable Thoracolum bar radiculopathy 3581985041 9108 M47.25 pt has chronic sciatica and ruq pain - no tolerate low dose gbn - mild, tolerable - consider retry this vs other if worse in future 9.24 - stable Spinal bienvenido nosis in cervical region 47355817 M48.02 cont f/u c neurosurge on and pain mgtmt - s/p janis injxn 8.. 9.24 - see below Insomnia 233191284 G47.0 0 rec stop tyl pm (benadryl has been linked to dementia) - rather use melatonin - if no sig help, call us - to consider traz or gbn (see above) Impaired f asting glycemia 742135725 R73.01 Cervical radiculopathy 68786047 M54.12 cont f/u c neuro, cont HEP 9.24 - pending updated mri/sx c Dr. 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 8537027722 56709 M19.041 seen by ATC remotely - will get updated eval and hand xrays Health Concerns Section Related Observation LastModified by Organization Detai ls LastModified Time None Recorded Concern Status LastModified by Organization Details LastModified Time None Recorded Advance Directives Directive Y: Georgia Domínguez (sister) Payers Insurance Date Sequence Insurance Name Policy Number Policy Morales Covered Member ID Morales Member ID Guarantor Name 03/29/2025 1 [facility] [place] [id number] Raymon Kimball [id number] Smita Kimball Notes Date Note Type Note Provider Name [...] the days and did not do well. George Roach, [facility] [address] [address], [place], [address], [facility] [place] 02/26/2023 13:40:42 3 text/html Generic HPI TemplateReported by Patient here for annual pe. Cristiane Harirs PA-C [address] [address], [place], [address], [facility] [place] 03/10/2023 10:43:03 3 text/html ROS as noted [...] any alarm symptoms ROCAEL MERAZ MD [address] [address], [place], [address], [facility] [place] 03/23/2023 15:24:12 4 text/html DysuriaReported by PatientHPIFor [...] recent abx/constipation/sexual activity. Arturo Reese MA null, [facility] [place] 12/12/2023 12:26:43 4 text/html Generic HPI TemplateReported by Patient here for annual pe. Cristiane Harris PA-C [address] [facility] [address], [place], [address], [facility] 03/11/2024 10:54:41 OBGyn Episode No OBEpisode recorded.
== END 2025-05-25 15:02 | disposition home or self-care (01) ==
LOC: HO.HMGAL 15:02
PROVIDERS: PCP Physician Assistant Medical; Visit Provider Registered Nurse Emergency
DX: J30.89 Other allergic rhinitis (principal)
CPT/HCPCS: 95117; 95165